=== PATIENT | female | born 1930 | race African-American/Black ===

== ENCOUNTER 2017-04-06 16:47 | Inpatient (IN) | payer MEDICARE, OTHER ==
[2017-04-03 09:14] LABS: BASOPHILS 0.1 %; BASOPHILS ABSOLUTE 0.01 10/3/uL (0.0-0.16); EOSINOPHILS 3.5 %; EOSINOPHILS ABSOLUTE 0.27 10/3/uL (0.0-0.53); HEMOGLOBIN 9.4 g/dL (12.0-16.0); IMMATURE GRANULOCYTES 0.4 %; IMMATURE GRANULOCYTES ABSOLUTE 0.03 10/3/uL (0.0-0.11); LYMPHOCYTES ABSOLUTE 2.72 10/3/uL (0.67-4.30); MEAN CORPUS HGB CONC 33.2 g/dL (32.0-36.0); MEAN CORPUSCULAR HEMOGLOB 30.1 pg (26.0-34.0); MEAN CORPUSCULAR VOLUME 90.7 fL (80-100); MEAN PLATELET VOLUME 9.8 fL (9.2-13.0); MONOCYTES 9.7 %; MONOCYTES ABSOLUTE 0.75 10/3/uL (0.21-1.20); NEUTROPHILS 51.3 %; NEUTROPHILS ABSOLUTE 3.99 10/3/uL (2.02-8.40); RBC DISTRIBUTION WIDTH 15.1 % (12.0-16.0); RED CELL COUNT 3.12 10/6/uL (4.0-5.6); WHITE BLOOD CELLS 7.8 10/3/uL (4.5-10.5)
[2017-04-03 09:23] LABS: HEMATOCRIT 28.3 % (36.0-48.0); MANUAL DIFF NO %; PLATELET COUNT 155 10/3/uL (150-400)
--- NOTE | ~2017-04-06 | HP ---
History And Physical [id number] [place]. [address] NAME: ARDEN SIDDIQI : 30 STATUS : ADM Maureen PAT#: [id number] AGE: 87 ADM/REG DATE : 04/06/17 MR#: [id number] REPORT SERV DATE: 04/06/17 DICTATED BY: KULWINDER THURMAN DATE: 04/06/17 REPORT STATUS : Draft TRANSCRIBED BY: MODL DATE: 04/06/17 DATE OF ADMISSION: 04/06/2017 CHIEF COMPLAINT: Fever and weakness. HISTORY OF PRESENT ILLNESS: This is an 87-year-old male who had a hip surgery done on 11/24/2016 and was then transferred to [facility] for rehabilitation. She has been there since the surgery and has done poorly with the rehab. However, since Saturday last, she has been feeling poorly, has had generalized weakness, and is unable to get up off the bed even. In the last 24 hours, she has had a fever of 103 degrees Fahrenheit, and finally, the family wanted the patient transferred here to be evaluated. In the emergency room, initial workup revealed a urinary tract infection with pyelonephritis and sepsis with a lactate of 3.4. She also complained of some chest pain 2 days ago and has not had any since then, but her troponin today was marginally elevated as well. Hospitalist Service is asked to admit her for further evaluation and treatment. At the time of my evaluation, she denied any chest pain or palpitations. She had no orthopnea. She did have a cough, productive of clear sputum. No history of hemoptysis, night sweats, or weight loss. She has not had any recent fevers or chills and has not complained of any dysuria. No history of recent falls or loss of consciousness. She did have some nausea, vomiting, but no diarrhea. No history of hematemesis, hematochezia, or hematuria. No other history of recent travel or exposures other than those mentioned above. PAST MEDICAL HISTORY: Significant for history of recent left hip fracture as described above, history of chronic kidney disease stage 3, history of DVT, essential hypertension, gastroesophageal reflux disease with GI bleed in the past, history of myelodysplasia, and cervical cancer. SOCIAL HISTORY: She does not smoke, drink, or use recreational drugs. FAMILY HISTORY: Noncontributory. MEDICATIONS: At home were reviewed by me in the chart today and reordered by me. REVIEW OF SYSTEMS: As in history of present illness. All other systems were reviewed in detail and are quite unremarkable. PHYSICAL EXAMINATION: GENERAL: This is a pleasant 87-year-old, not in any acute distress. HEENT: Head is atraumatic, normocephalic. She is alert, awake, oriented to time, place, and person. Her pupils are equal, reacting to light and accommodating. External ocular muscles are intact. Membranes are moist and pink. Sclerae are nonicteric. NECK: Supple with no jugular venous distention, lymphadenopathy, or thyromegaly. LUNGS: Clear to auscultation with no wheezes, rubs, or crackles. HEART: Heart sounds are regular with no murmurs, rubs, or gallops appreciated. History And Physical [address] [address] NAME: ARDEN SIDDIQI : 30 STATUS : ADM Maureen PAT#: [id number] AGE: 87 ADM/REG DATE : 04/06/17 MR#: [id number] REPORT SERV DATE: 04/06/17 DICTATED BY: KULWINDER THURMAN DATE: 04/06/17 REPORT STATUS : Draft TRANSCRIBED BY: EBONIE DATE: 04/06/17 ABDOMEN: Soft and nontender. Bowel sounds are present. EXTREMITIES: Do not show any edema cyanosis or clubbing. NEUROLOGIC: Grossly intact. No focal deficits. Higher functions appear intact. VITAL SIGNS: Her vital signs today show a temperature of 98.49, pulse 72, respirations 22 a minute, blood pressure 120/62, oxygen saturations 96%, breathing 2 L of oxygen via nasal cannula. LABORATORY DATA: Reviewed on the [employer] system showed a sodium of 140, potassium 3.8, chloride 107, CO2 of 24. BUN was 47 with a creatinine of 2.02 today, this is up from her baseline of 1 to 1.2. Her glucose was 180 today. GFR was down to 25. Her troponin was 0.11 today. [place] a [place] [address], hemoglobin was 9.8, hematocrit was 30.2 which has been her baseline. MCV was 92.4 and platelet was 115995. Her prothrombin times a day. Urinalysis showed moderate leukocyte esterase. Nitrite was negative. There were 16 wbc's and many bacteria. Films of the chest x-ray were reviewed by me on the PACS today and interpreted by me. Per my interpretation, there are no acute changes. No lobar consolidations or effusions seen. A 12-lead EKG done in the emergency room was reviewed and interpreted by me. There is a normal sinus rhythm with a rate of [address] elevations. IMPRESSION: 1. Febrile illness. 2. Urinary tract infection. 3. Pyelonephritis. 4. Sepsis. 5. Anemia. 6. Acute kidney injury. 7. Chest pain. 8. Elevated troponin. 9. History of deep venous thrombosis. 10.Essential hypertension. 11.Myelodysplasia. 12.Chronic kidney disease. 13.Cervical cancer. 14.Lastly, left hip fracture, status post open reduction and internal fixation done by Dr. Marquis on 11/24/2016. We will admit Ms. Siddiqi to the Hospitalist Service with telemetry for a 24-hour observation day. After cultures are drawn, we will start her on empiric IV antibiotics and cover for nosocomial infections as well. Her anemia is chronic but stable. We will continue to monitor. She does have myelodysplastic syndrome. For her chest pain and elevated troponin, we will follow the troponins, hold off on heparin at this time due to history of GI bleed in this 87-year-old lady. Meanwhile, we will resort to aspirin and noninvasive strategies for now. We will also place her on IV fluids for volume resuscitation. Check her chemistry and electrolytes in the morning along with a CBC and correct accordingly. We will continue all other home medications at this time, place her on unfractionated heparin in a low dose for DVT prophylaxis as well. Please see today's orders for all the details. I have discussed the above plans with the patient. Her questions were answered today. She and her family History And Physical [address] [address] NAME: ARDEN SIDDIQI : 30 STATUS : ADM Maureen PAT#: [id number] AGE: 87 ADM/REG DATE : 04/06/17 MR#: [id number] REPORT SERV DATE: 04/06/17 DICTATED BY: KULWINDER THURMAN DATE: 04/06/17 REPORT STATUS : Draft TRANSCRIBED BY: EBONIE DATE: 04/06/17 are agreeable to the above recommendations. Hospitalist Service will be following her during her stay here. /EBONIE Kulwinder Thurman M.D. / [id number] CC: MD Sandeep Viramontes M.D.
--- NOTE | ~2017-04-06 | PUL ---
[facility] [address] [place]. [address] NAME: ARDEN SIDDIQI : 30 STATUS : ADM IN PAT#: [id number] AGE: 87 ADM/REG DATE : 04/07/17 MR#: [id number] REPORT SERV DATE: 04/09/17 DICTATED BY: JOSE LUIS SAMUELS DATE: 04/09/17 REPORT STATUS : Draft TRANSCRIBED BY: MODL DATE: 04/09/17 PULMONARY FUNCTION TEST OVERNIGHT PULSE OXIMETRY TEST: Overnight pulse oximetry done on room air. TOTAL RECORDING TIME: 6 hours 3 minutes. Mean pulse 79. Mean oxygen saturation 95.5%. Oxygen saturation less than 88% is 10 minutes 14 seconds, 2.9% of the night. INTERPRETATION: This is an abnormal study with nocturnal hypoxia, however, upon reviewing the SpO2 graft, if there is clinical concern of obstructive sleep apnea, would recommend outpatient polysomnogram versus starting this patient on oxygen therapy for nocturnal hypoxia. HFQ/EBONIE Jose Luis Samuels MD / [id number] CC: MD Sandeep Brink M.D.
--- NOTE | ~2017-04-06 | DS ---
Discharge Summary [address] [place]. [address] NAME: ARDEN SIDDIQI : 30 STATUS : DIS IN PAT#: [id number] AGE: 87 ADM/REG DATE : 04/07/17 MR#: [id number] REPORT SERV DATE: 04/21/17 DICTATED BY: DEDE PÉREZ DATE: 04/20/17 REPORT STATUS : Draft TRANSCRIBED BY: MODL DATE: 04/20/17 ADMISSION DATE: 04/07/2017 DISCHARGE DATE: 04/20/2017 DISCHARGE DIAGNOSES: 1. Sepsis. 2. Septic shock. 3. Lactic acidosis. 4. Escherichia coli pyelonephritis. 5. Acute pulmonary emboli with acute cor pulmonale with pulmonary systolic pressure of 70. 6. Acute kidney injury. 7. Chronic kidney disease 3. 8. Positive troponin, thought to be demand ischemia. 9. Pulmonary infiltrates. 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 11.History of previous deep venous thrombosis and anticoagulation. 12.History of gastrointestinal bleeding in 08/2015 and 02/2016. Negative stool Hemoccult. On anticoagulation at end of current hospitalization. 13.Dementia. 14.Systemic hypertension. 15.Hyperlipidemia. 16.Myelodysplasia. 17.Osteoporosis with history of fall and hip fracture in November 2016 and L1 compression fracture. 18.History of chronic rectal mass. 19.History of cervical cancer, treated. 20.Glaucoma. 21.Diverticulosis. 22.History of renal stones. 23.Diarrhea, Clostridium difficile negative, resolved. PRESENT ILLNESS: This is an 87-year-old female who was triaged in the emergency room on 04/06/2017 at 1647 hours, referred from [facility]. Admission vital signs: Blood pressure 120/62, temperature 98.49, pulse 72, respirations 22, O2 saturation 96%. After evaluation in the emergency room, she was found to have leukocytosis, anemia, acute kidney injury, and an abnormal urinalysis. She was referred to the Hospitalist Service for admission. She was seen by Dr. Kulwinder Sood and admitted as described on admission history and physical examination. Of note was that she had been in this hospital 11/23/2016 to 11/27/2016 with a left hip fracture. She had been at [facility] since that time, but had not returned to her pre hip fracture status. Discharge Summary [address] [place]. [address] NAME: ARDEN SIDDIQI : 30 STATUS : DIS IN PAT#: [id number] AGE: 87 ADM/REG DATE : 04/07/17 MR#: [id number] REPORT SERV DATE: 04/21/17 DICTATED BY: DEDE PÉREZ DATE: 04/20/17 REPORT STATUS : Draft TRANSCRIBED BY: MODL DATE: 04/20/17 In the previous 24 hours prior to admission, she had a temperature documented to 103. She had also complained of some chest pain. ADDITIONAL HISTORY: Per Dr. Sood. PHYSICAL EXAMINATION: Per Dr. Sood. ADMISSION LABORATORY: Per Dr. Sood. HOSPITAL COURSE: She was admitted by Dr. Sood with: 1. Febrile illness. 2. Urinary tract infection. 3. Pyelonephritis. 4. Sepsis. 5. Anemia. 6. Acute kidney injury. 7. Chest pain. 8. Elevated troponin. 9. History of deep venous thrombosis. 10.Essential hypertension. 11.Myelodysplasia. 12.Chronic kidney disease. 13.Cervical cancer. 14.Left hip fracture, post ORIF 11/24/2016. She was admitted to the Hospitalist Service. Cultures were obtained and she was started on broad-spectrum antimicrobial therapy. Crystalloid volume resuscitation was initiated. Her hospitalist care was assumed by Dr. Cheema on 04/07/2017. At that time, she appeared to have severe sepsis with hypotension. Critical Care consultation was obtained in addition to Cardiology consultation. She was seen by Dr. Dede Shi in the Critical Care Team. Her hospital course from admission through 04/10/2017 is as outlined on interim summary dictated by Dr. Dede Dewey. Her hospitalist care was then assumed by Dr. Davila on 04/11/2017 and 04/12/2017, then Dr. Richardson on 04/13/2017, then Dr. Whitaker on 04/14/2017 and 04/15/2017. She was seen by Holli Steiner APN, on 04/16/2017, and then the undersigned on 04/17/2017, 04/18/2017, 04/19/2017, and 04/20/2017. During the course of her hospitalization, her sepsis with shock, lactic acidosis, and pyelonephritis resolved. By the time of discharge, her white count was 9.5, having been 29.1 on 04/06/2017. Discharge Summary [facility] [place]. [address] NAME: ARDEN SIDDIQI : 30 STATUS : DIS IN PAT#: [id number] AGE: 87 ADM/REG DATE : 04/07/17 MR#: [id number] REPORT SERV DATE: 04/21/17 DICTATED BY: DEDE PÉREZ DATE: 04/20/17 REPORT STATUS : Draft TRANSCRIBED BY: MODMarianne DATE: 04/20/17 Her acute kidney injury had resolved with creatinine 2.02 on 04/06/2017 and 1.27 on 04/20/2017. She was initially treated with heparin, then transitioned to Coumadin. Her Coumadin requirement was extraordinarily low with therapeutic INR of 2.3 on 04/14/2017 and 04/15/2017, 2.6 on 04/16/2017, 2.9 on 04/17/2017, 2.7 on 04/18/2017, 2.9 on 04/19/2017, and 2.7 on 04/20/2017 with Coumadin dosing of 1 mg on 04/15/2017, 1 mg on 04/16/2017, and then no subsequent Coumadin. Stools were checked for occult blood given her previous history of gastrointestinal bleeding and both stools from 04/18/2017 and 04/19/2017 were negative. She developed some transient diarrhea, probably related to treatment for constipation. Stool was negative for C. difficile. During her hospitalization, she developed some patchy infiltrates. During the time she was seen by the undersigned, she did not have a productive cough or dyspnea. She was seen by Physical Therapy. Return to [facility] was recommended. On 04/20/2017, she was having no diarrhea. She had no new symptoms. She had a dry cough. She reported variable dysuria. Her O2 saturation was in the mid to high 90s on room air. She was in sinus rhythm. Her sodium was 141, potassium 3.8, chloride 106, CO2 of 26, BUN 17, creatinine 1.27, glucose 92, calcium 7.5. White count 9.5, hemoglobin 9.4 (stable), platelets 268,000, and INR as noted 2.7. At this point in her hospitalization, it was felt she had achieved a level of improvement and stability where she could be safely transitioned back to [facility] for rehab. DISCHARGE MEDICATIONS: Voltaren gel to knees and left shoulder twice daily; Aricept 10 mg daily; Cymbalta 30 mg daily; Eldertonic 30 mL daily; multivitamin 1 daily; Namenda 10 mg daily; omeprazole 40 mg twice daily; MiraLAX and Senokot if needed for constipation; sodium bicarbonate 650 mg three times daily. Monitoring BMP and adjusting dose and possibly discontinuing Coumadin. No Coumadin prescribed 04/20/2017 or 04/21/2017, with PT/INR on 04/22/2017. Dosing will be low, probably 0.5 to 1 mg, but not daily, with an INR goal of 2 to 2.5. Levaquin 750 mg every other day for two further doses on 04/21/2017 and 04/23/2017 to complete 2 weeks of antimicrobial therapy; meclizine 12.5 mg every 6 hours as needed; carvedilol 3.125 mg twice daily, increasing to 6.25 mg twice daily over the next several days if blood pressure and pulse allow; Ultram 25 mg every 6 hours as needed for pain. She will continue her timolol 1 drop twice daily in each eye. Vitamin C and iron present on admission were discontinued with current ferritin of 826. Discharge Summary [address] [address] NAME: ARDEN SIDDIQI : 30 STATUS : DIS IN PAT#: [id number] AGE: 87 ADM/REG DATE : 04/07/17 MR#: [id number] REPORT SERV DATE: 04/21/17 DICTATED BY: DEDE PÉREZ DATE: 04/20/17 REPORT STATUS : Draft TRANSCRIBED BY: MODL DATE: 04/20/17 She will need PT/INR, BMP, and CBC on 04/22/2017 called to her provider at [facility]. Additional questions can be directed to me at [phone]. Discharge time greater than 30 minutes. DICTATED BY: Dede Pérez M.D. DD/EBONIE Dede Pérez M.D. / [id number] CC: Elian Khan M.D. [facility]
--- NOTE | ~2017-04-06 | CN ---
Consultation Report [facility] [address] [place]. [address] NAME: ARDEN SIDDIQI : 30 STATUS : ADM Maureen PAT#: [id number] AGE: 87 ADM/REG DATE : 04/06/17 MR#: [id number] REPORT SERV DATE: 04/07/17 DICTATED BY: DEDE SHI DATE: 04/07/17 REPORT STATUS : Draft TRANSCRIBED BY: MODMarianne DATE: 04/07/17 CARDIOLOGY CONSULTATION DATE OF CONSULTATION: INDICATION: Atypical chest pain and elevated troponin. HISTORY: The patient is an 87-year-old female, who was admitted from [facility], where she has been hospitalized since 11/24/2016, after undergoing surgery for a hip fracture. She has had progressive weakness and was noted to have a fever of 103 degrees in the past 24 hours. She was found to have urinary tract infection and sepsis with a lactate of 3.4 and a white count of greater than 29,000. When asked about chest discomfort, she states that she has had chronic discomfort in the left precordial region along with neck pain. There is no exertional component. There are no acute EKG changes. There is no family history of coronary disease. The patient has never been a smoker. CURRENT HOME MEDICATIONS: Acetaminophen 500 q.4 hours, ascorbic acid 500, carvedilol 6.25 b.i.d., cyclobenzaprine 5 per day, diclofenac gel b.i.d., benazepril 10 per day, Duloxetine 30 per day, ferrous sulfate 325 a day, Antivert 25 q.6h p.r.n., Namenda 10 per day, milk of magnesia 30 p.r.n., multivitamins daily, omeprazole 20 per day, timolol malleate ophthalmologic OU b.i.d., tramadol 50 p.r.n. ALLERGIES OR INTOLERANCES: Penicillin, lorazepam, hydrocodone, and clonazepam. SOCIAL HISTORY: As mentioned negative for alcohol or tobacco use. FAMILY HISTORY: Negative for coronary artery disease at a young age. PAST MEDICAL HISTORY/REVIEW OF SYSTEMS: Positive for the recent hip fracture, chronic kidney disease, stage III, previous history of DVT, systemic hypertension, history of GERD with previous GI bleed, and history of myelodysplasia. She has had a remote history of cervical cancer. PHYSICAL EXAMINATION: GENERAL: Pleasant 87-year-old, white female, alert, in no acute distress. VITAL SIGNS: Blood pressure 95/63, pulse 73 and regular, respirations 18. SKIN: No xanthelasmas. HEENT: She is normocephalic. There is no pallor. Sclerae white. JVD is not elevated. No carotid bruits. CHEST: No crackles. CARDIAC: There is a 2/6 holosystolic murmur heard at the apex. There is a soft S4. ABDOMEN: Without tenderness. EXTREMITIES: Without edema. No clubbing. NEUROLOGIC: No focal deficits. Consultation Report [id number] [facility] [place]. [address] NAME: ARDEN SIDDIQI : 30 STATUS : ADM Maureen PAT#: [id number] AGE: 87 ADM/REG DATE : 04/06/17 MR#: [id number] REPORT SERV DATE: 04/07/17 DICTATED BY: DEDE SHI DATE: 04/07/17 REPORT STATUS : Draft TRANSCRIBED BY: MODL DATE: 04/07/17 MUSCULOSKELETAL: No kyphosis. LABORATORY DATA: BUN 50, creatinine 2.14, troponin has been in the 0.2 range at the time of admission, on 04/07/2017 started out at 0.11 and has not increased further, white count initially greater than 29,000, today 24.8, hemoglobin 8.9, platelets 147,000. As mentioned the ECG earlier this morning showed sinus rhythm with PACs. There are some nonspecific ST-T wave changes with poor R-wave progression. There are no acute repolarization changes present. IMPRESSION: Atypical chest pain in an elderly white female, with multiple drivers for elevated troponin. No acute intervention is required, I would take a watchful waiting approach. I would not start heparin at this point in time. Further recommendations as her clinical course evolves. MAREK/EBONIE Dede Shi M.D. / [id number] CC: MD Sandeep Brink M.D. , [facility]
--- NOTE | ~2017-04-06 | IDS ---
Interim Discharge Summary [facility] [address] [place]. [address] NAME: ARDEN SIDDIQI : 30 STATUS : ADM IN [facility]#: [id number] AGE: 87 ADM/REG DATE : 04/07/17 MR#: [id number] REPORT SERV DATE: 04/10/17 DICTATED BY: DEDE DEWEY DATE: 04/10/17 REPORT STATUS : Draft TRANSCRIBED BY: MODL DATE: 04/10/17 ADMISSION DATE: 04/07/2017 DISCHARGE DATE: DATE OF ICU TRANSFER: 04/07/2017. DATE OF INTERIM SUMMARY: 04/10/2017. INTERIM DIAGNOSES: 1. Escherichia coli urinary tract infection. 2. Septic shock. 3. Lactic acidosis. 4. Pulmonary embolism. 5. Acute on chronic renal failure. 6. Demand ischemia. 7. Sinus arrhythmia. ICU COURSE: Please see the dictated H and P and consult notes for full patient presentation and history. BRIEF SUMMARY: The patient is an 87-year-old female who was initially admitted to the Hospitalist Service on 04/07/2017 with some hypotension and evidence of urinary tract infection. Her hypotension worsened over the next 24 hours, and she had to be transferred to the ICU on 04/07/2017 for administration of vasopressors. She remained on Levophed for approximately 24 to 48 hours and was weaned off Levophed on 04/08/2017. She has remained off pressors since that time with a stable blood pressure. Empirically, she has been on cefepime for a urinary tract infection, which has since speciated as Escherichia coli that is sensitive to the cefepime; she is currently on day four of that. Her lactic acid also resolved with her shock. Currently, she is not on IV fluids. She also had some acute on chronic renal failure. Her creatinine has plateaued and is slowly trending down. Her creatinine level today is still pending, but we will continue to monitor this. While here, the patient had some chest pain and evidence of demand ischemia as well as episodes of sinus arrhythmia. Cardiology has been following the patient. On her echocardiogram, she had evidence of cor pulmonale with decreased right ventricular function. This prompted us to get a V/Q scan yesterday, which showed high probability of pulmonary embolism. Therefore, she has been started on a heparin drip, and this will be continued when she goes out to the floor. The patient is stable from my standpoint and she will be able to transfer out to the floor today. She will be assumed care by the Hospitalist service. Cardiology will continue to follow along as well. Please call if you have any questions. ALE/EBONIE Dede Dewey MD Interim Discharge Summary [address] [address] NAME: ARDEN SIDDIQI : 30 STATUS : ADM IN [facility]#: [id number] AGE: 87 ADM/REG DATE : 04/07/17 MR#: [id number] REPORT SERV DATE: 04/10/17 DICTATED BY: DEDE DEWEY DATE: 04/10/17 REPORT STATUS : Draft TRANSCRIBED BY: EBONIE DATE: 04/10/17 / [id number] CC: MD Sandeep Brink M.D.
[~2017-04-06 16:47] MED LIST: *UNABLE3; ACET500CAP PO; ACULAR OPH; ARANESP IV; ARICEPT10 PO; ARICEPT5 PO; ASA5GR PO; ASAB PO; ASAEC PO; BENGAY TOP; BETIMOL0.5 % OP; BETIMOL0.5 % OPH; BLOOD PRESSURE TAB PO; BONIVA150 MG PO; CALTRA600D PO; CIP5 PO; COREG6 PO; CYMBALTA30 PO; DOES NOT KNOW MEDS; FLAG500TAB PO; FLAGIV500 IV; FLEXERIL5 MG PO; FOSAMAX70 MG PO; HALF81 PO; HYDROCHLOROT25 MG PO; IRON325 MG PO; L40 PO; LIPITOR10 PO; LORTAB 5 PO; LOTE20 PO; LOTE40 PO; MAX25 PO; MCZ125 PO; MCZ25 PO; MELATONIN5 M1 PO; MIRALAXPKT PO; MULTIVIT WITH IRON PO; MULTIVIT/MIN PO; NORCO1 TA1 PO; NORV5 PO; P5 PO; PREDNISONE2.5 MG PO; PRILO PO; PRILOSEC40 MG PO; REFRES1 OPH; RELA5 PO; SYSTANE ULTR OP; T PO; TIMOLOL MAL0.5 % OP; TIMOLOL MAL0.5 % OPH; TIMOPTIC0.5 % OPH; TOPXL25 PO; TYLENOL 500MG TAB PO; TYLENOL ARTH650 MG PO; ULTRAM50 PO; VITAMIN D PO; VITAMIN D31000 UNIT PO; VITAMIN D400 UNI1 PO; ZYRTEC ALLGY10 MG PO; [UNRECOGNIZED DRUG - REMARK] IV; [UNRECOGNIZED DRUG - REMARK] SC
[2017-04-06] MEDS ORDERED: FLEXERIL5 MG PO (17:44)
[2017-04-06] MEDS ORDERED: COREG3 PO (17:44)
[2017-04-06] MEDS ORDERED: CYMBALTA30 PO (17:45)
[2017-04-06] MEDS ORDERED: ELDERTONIC PO (17:45)
[2017-04-06] MEDS ORDERED: ARICEPT10 PO (17:45)
[2017-04-06] MEDS ORDERED: NAMENDA10 MG PO (17:46)
[2017-04-06] MEDS ORDERED: FERROUS SULF325 M1 PO (17:46)
[2017-04-06] MEDS ORDERED: THERGRANM PO (17:46)
[2017-04-06] MEDS ORDERED: PRILOSEC OTC20 MG PO (17:47)
[2017-04-06] MEDS ORDERED: TIMOLOL MAL0.5 % OPH (17:47)
[2017-04-06] MEDS ORDERED: VITC500 PO (17:48)
[2017-04-06] MEDS ORDERED: VOLTAREN1 % TOP (17:48)
[2017-04-06] MEDS ORDERED: ULTRAM50 PO ×2 (17:48→17:50)
[2017-04-06] MEDS ORDERED: ACET500CAP PO (17:49)
[2017-04-06] MEDS ORDERED: MCZ25 PO (17:49)
[2017-04-06] MEDS ORDERED: MOMUD PO (17:50)
[2017-04-06 18:45] LABS: BASOPHILS 0 %; BASOPHILS ABSOLUTE 0.01 10/3/uL (0.0-0.16); EOSINOPHILS 0 %; HEMATOCRIT 30.2 % (36.0-48.0); HEMOGLOBIN 9.8 g/dL (12.0-16.0); IMMATURE GRANULOCYTES 0.5 %; LYMPHOCYTES 4.7 %; LYMPHOCYTES ABSOLUTE 1.37 10/3/uL (0.67-4.30); MEAN CORPUS HGB CONC 32.5 g/dL (32.0-36.0); MEAN CORPUSCULAR VOLUME 92.4 fL (80-100); MEAN PLATELET VOLUME 10.2 fL (9.2-13.0); MONOCYTES 4.3 %; MONOCYTES ABSOLUTE 1.25 10/3/uL (0.21-1.20); NEUTROPHILS 90.5 %; NEUTROPHILS ABSOLUTE 26.33 10/3/uL (2.02-8.40); PLATELET COUNT 165 10/3/uL (150-400); RBC DISTRIBUTION WIDTH 15.3 % (12.0-16.0); RED CELL COUNT 3.27 10/6/uL (4.0-5.6)
[2017-04-06 18:49] LABS: ER CBC TAT 0 Hrs 12 Mins; IMMATURE GRANULOCYTES ABSOLUTE 0.16 10/3/uL (0.0-0.11); MANUAL DIFF NO %; WHITE BLOOD CELLS 29.1 10/3/uL (4.5-10.5)
[2017-04-06 19:03] LABS: A/G RATIO 0.6 (0.7-1.9); ALBUMIN 2.6 G/DL (3.5-5.0); ALKALINE PHOSPHATASE 84 U/L (45-117); BUN (BLOOD UREA NITROGEN) 47 MG/DL (6-23); CALCIUM, SERUM 8.9 MG/DL (8.5-10.4); CHLORIDE, SERUM 107 MMOL/L (96-112); CO2 (CARBON DIOXIDE) 24 MMOL/L (24-34); CREATININE 2.02 MG/DL (0.55-1.02); GFR AFRICAN AMERICAN 25 ML/MIN (>=60); GFR NON AFRICAN AMERICAN 22 ML/MIN (>=60); GLOBULIN 4.7 G/DL (2.5-4.1); GLUCOSE, SERUM 180 MG/DL (60-99); LACTATE 3.4 MMOL/L (0.3-2.4); POTASSIUM, SERUM 3.8 MMOL/L (3.5-5.3); SGOT(AST) 13 U/L (5-40); SGPT(ALT) 11 U/L (5-65); SODIUM, SERUM 140 MMOL/L (135-148); TOTAL BILIRUBIN 0.8 MG/DL (0-1.2); TOTAL PROTEIN 7.3 G/DL (6.0-8.5)
[2017-04-06 19:04] LABS: TROPONIN I 0.11 NG/ML (<0.05)
[2017-04-06 19:05] LABS: ASCORBIC ACID (UR NOT ORDER) 40 (NEG); BILIRUBIN, URINE NEGATIVE (NEG); ER URINALYSIS TAT 0 Hrs 16 Mins; KETONE, URINE NEGATIVE (NEG); LEUKOCYTE ESTERASE(NOT OR MOD (NEG); NITRITE (URINE) NEG (NEG); WBC (NOT ORDERED) (RFLEX) 16 (0-5)
[2017-04-06 19:11] LABS: BAND NEUTROPHILS 1 %; ER DIFF TAT 0 Hrs 34 Mins; LYMPHOCYTES 6 %; LYMPHOCYTES ABSOLUTE (CALC) 1.75 10/3/uL (0.67-4.30); MONOCYTES 1 %; MONOCYTES ABSOLUTE (CALC) 0.29 10/3/uL (0.21-1.20); NEUTROPHILS ABSOLUTE (CALC) 27.06 10/3/uL (2.02-8.40); SEGMENTED NEUTROPHIL (0) 92 %; TOTAL NUCLEATED CELLS 100
[2017-04-06 19:12] LABS: GIANT PLATELET RARE
[2017-04-06 19:13] LABS: PLATELET ESTIMATE ADQ (ADEQUATE)
[2017-04-07 07:09] LABS: HEMATOCRIT 27.4 % (36.0-48.0); HEMOGLOBIN 8.9 g/dL (12.0-16.0); MEAN CORPUS HGB CONC 32.5 g/dL (32.0-36.0); MEAN CORPUSCULAR HEMOGLOB 29.8 pg (26.0-34.0); MEAN CORPUSCULAR VOLUME 91.6 fL (80-100); MEAN PLATELET VOLUME 9.9 fL (9.2-13.0); PLATELET COUNT 147 10/3/uL (150-400); RBC DISTRIBUTION WIDTH 15.1 % (12.0-16.0); RED CELL COUNT 2.99 10/6/uL (4.0-5.6); WHITE BLOOD CELLS 24.8 10/3/uL (4.5-10.5)
[2017-04-07 07:12] LABS: MANUAL DIFF YES %
[2017-04-07 07:27] LABS: BUN (BLOOD UREA NITROGEN) 50 MG/DL (6-23); CALCIUM, SERUM 8.1 MG/DL (8.5-10.4); CHLORIDE, SERUM 111 MMOL/L (96-112); CREATININE 2.14 MG/DL (0.55-1.02); GFR AFRICAN AMERICAN 23 ML/MIN (>=60); GFR NON AFRICAN AMERICAN 20 ML/MIN (>=60); PHOSPHORUS, SERUM 3.4 MG/DL (2.5-4.5); POTASSIUM, SERUM 3.7 MMOL/L (3.5-5.3); SODIUM, SERUM 143 MMOL/L (135-148)
[2017-04-07 07:28] LABS: CO2 (CARBON DIOXIDE) 19 MMOL/L (24-34); GLUCOSE, SERUM 127 MG/DL (60-99)
[2017-04-07 07:40] LABS: BAND NEUTROPHILS 2 %; LYMPHOCYTES 6 %; LYMPHOCYTES ABSOLUTE (CALC) 1.49 10/3/uL (0.67-4.30); MONOCYTES 6 %; MONOCYTES ABSOLUTE (CALC) 1.49 10/3/uL (0.21-1.20); NEUTROPHILS ABSOLUTE (CALC) 21.82 10/3/uL (2.02-8.40); SEGMENTED NEUTROPHIL (0) 86 %; TOTAL NUCLEATED CELLS 100
[2017-04-07 07:41] LABS: PLATELET ESTIMATE SLT DEC (ADEQUATE); RBC MORPHOLOGY NORM (NORMAL)
[2017-04-07 19:39] LABS: HEMOGLOBIN 9.6 g/dL (12.0-16.0); MEAN CORPUSCULAR HEMOGLOB 29.8 pg (26.0-34.0); MEAN CORPUSCULAR VOLUME 93.2 fL (80-100); MEAN PLATELET VOLUME 9.8 fL (9.2-13.0); PLATELET COUNT 156 10/3/uL (150-400); RBC DISTRIBUTION WIDTH 15.4 % (12.0-16.0); RED CELL COUNT 3.22 10/6/uL (4.0-5.6); WHITE BLOOD CELLS 24.5 10/3/uL (4.5-10.5)
[2017-04-07 19:41] LABS: MANUAL DIFF YES %
[2017-04-07 19:52] LABS: A/G RATIO 0.5 (0.7-1.9); ALBUMIN 2.3 G/DL (3.5-5.0); ALKALINE PHOSPHATASE 90 U/L (45-117); CALCIUM, SERUM 8.1 MG/DL (8.5-10.4); CHLORIDE, SERUM 111 MMOL/L (96-112); CREATININE 2.51 MG/DL (0.55-1.02); GFR AFRICAN AMERICAN 19 ML/MIN (>=60); GFR NON AFRICAN AMERICAN 17 ML/MIN (>=60); GLOBULIN 4.5 G/DL (2.5-4.1); GLUCOSE, SERUM 113 MG/DL (60-99); POTASSIUM, SERUM 4.4 MMOL/L (3.5-5.3); SGOT(AST) 19 U/L (5-40); SGPT(ALT) 13 U/L (5-65); SODIUM, SERUM 143 MMOL/L (135-148); TOTAL BILIRUBIN 0.5 MG/DL (0-1.2); TOTAL PROTEIN 6.8 G/DL (6.0-8.5)
[2017-04-07 19:53] LABS: BUN (BLOOD UREA NITROGEN) 56 MG/DL (6-23); CO2 (CARBON DIOXIDE) 25 MMOL/L (24-34)
[2017-04-07 19:56] LABS: BE (BASE EXCESS) -4.5 MEQ/L (0 +/- 2.5); CARBOXYHEMOGLOBIN 0.3 % (0-3); HCO3 (ACTUAL BICARBONATE) 19.2 MEQ/L (23-27); HEMOBLOGIN CONTENT 9.9 G/DL (12-16); INSTRUMENT SERIAL # 35151; METHEMOGLOBIN 0.4 % (0-3); O2 CONTENT 12.9 VOL% (18-24); OPERATOR ID 31061; PCO2 (CO2 TENSION) 31 MMHG (35-45); PO2 (O2 TENSION) 71 MMHG (79-93); SAMPLE Arterial; pH 7.42 (7.37-7.43)
[2017-04-07 19:56] LABS: BAND NEUTROPHILS 2 %; LYMPHOCYTES 3 %; LYMPHOCYTES ABSOLUTE (CALC) 0.74 10/3/uL (0.67-4.30); MONOCYTES 1 %; MONOCYTES ABSOLUTE (CALC) 0.25 10/3/uL (0.21-1.20); NEUTROPHILS ABSOLUTE (CALC) 23.52 10/3/uL (2.02-8.40); SEGMENTED NEUTROPHIL (0) 94 %; TOTAL NUCLEATED CELLS 100
[2017-04-07 19:57] LABS: ALLENS TEST Pos
[2017-04-07 19:57] LABS: BURR CELLS 1+ (3-10/OIF) (0-2/OIF)
[2017-04-07 20:00] LABS: PLATELET ESTIMATE ADQ (ADEQUATE)
[2017-04-08 04:53] LABS: BASOPHILS 0.1 %; BASOPHILS ABSOLUTE 0.01 10/3/uL (0.0-0.16); EOSINOPHILS 0.1 %; EOSINOPHILS ABSOLUTE 0.01 10/3/uL (0.0-0.53); HEMATOCRIT 26.2 % (36.0-48.0); HEMOGLOBIN 8.5 g/dL (12.0-16.0); IMMATURE GRANULOCYTES 0.6 %; LYMPHOCYTES 8.2 %; LYMPHOCYTES ABSOLUTE 1.44 10/3/uL (0.67-4.30); MANUAL DIFF NO %; MEAN CORPUS HGB CONC 32.4 g/dL (32.0-36.0); MEAN CORPUSCULAR HEMOGLOB 29.9 pg (26.0-34.0); MEAN CORPUSCULAR VOLUME 92.3 fL (80-100); MONOCYTES 4.4 %; MONOCYTES ABSOLUTE 0.77 10/3/uL (0.21-1.20); NEUTROPHILS 86.6 %; NEUTROPHILS ABSOLUTE 15.13 10/3/uL (2.02-8.40); NUCLEATED RED BLOOD CELLS 0.3 /100WBC (0-0); PLATELET COUNT 161 10/3/uL (150-400); RBC DISTRIBUTION WIDTH 15.4 % (12.0-16.0); RED CELL COUNT 2.84 10/6/uL (4.0-5.6); WHITE BLOOD CELLS 17.5 10/3/uL (4.5-10.5)
[2017-04-08 05:06] LABS: CALCIUM, SERUM 8.2 MG/DL (8.5-10.4); CHLORIDE, SERUM 116 MMOL/L (96-112); CREATININE 2.51 MG/DL (0.55-1.02); GFR AFRICAN AMERICAN 19 ML/MIN (>=60); GFR NON AFRICAN AMERICAN 17 ML/MIN (>=60); GLUCOSE, SERUM 101 MG/DL (60-99); POTASSIUM, SERUM 3.9 MMOL/L (3.5-5.3); SODIUM, SERUM 141 MMOL/L (135-148)
[2017-04-08 05:09] LABS: BUN (BLOOD UREA NITROGEN) 61 MG/DL (6-23); CO2 (CARBON DIOXIDE) 20 MMOL/L (24-34); TROPONIN I 0.39 NG/ML (<0.05)
[2017-04-09 05:07] LABS: HEMATOCRIT 26.7 % (36.0-48.0); HEMOGLOBIN 8.7 g/dL (12.0-16.0); MEAN CORPUS HGB CONC 32.6 g/dL (32.0-36.0); MEAN CORPUSCULAR VOLUME 92.1 fL (80-100); MEAN PLATELET VOLUME 9.7 fL (9.2-13.0); NUCLEATED RED BLOOD CELLS 0.7 /100WBC (0-0); PLATELET COUNT 172 10/3/uL (150-400); RBC DISTRIBUTION WIDTH 15.6 % (12.0-16.0); WHITE BLOOD CELLS 13.3 10/3/uL (4.5-10.5)
[2017-04-09 05:08] LABS: A/G RATIO 0.6 (0.7-1.9); ALBUMIN 2.3 G/DL (3.5-5.0); ALKALINE PHOSPHATASE 87 U/L (45-117); BUN (BLOOD UREA NITROGEN) 59 MG/DL (6-23); CALCIUM, SERUM 7.8 MG/DL (8.5-10.4); CHLORIDE, SERUM 114 MMOL/L (96-112); CO2 (CARBON DIOXIDE) 17 MMOL/L (24-34); CREATININE 2.39 MG/DL (0.55-1.02); GFR AFRICAN AMERICAN 20 ML/MIN (>=60); GFR NON AFRICAN AMERICAN 18 ML/MIN (>=60); GLOBULIN 3.6 G/DL (2.5-4.1); PHOSPHORUS, SERUM 3.4 MG/DL (2.5-4.5); POTASSIUM, SERUM 3.9 MMOL/L (3.5-5.3); SGOT(AST) 28 U/L (5-40); SGPT(ALT) 16 U/L (5-65); SODIUM, SERUM 144 MMOL/L (135-148); TOTAL BILIRUBIN 0.4 MG/DL (0-1.2); TOTAL PROTEIN 5.9 G/DL (6.0-8.5)
[2017-04-09 05:09] LABS: GLUCOSE, SERUM 74 MG/DL (60-99)
[2017-04-09 05:10] LABS: LACTATE 1.1 MMOL/L (0.3-2.4)
[2017-04-09 05:13] LABS: MANUAL DIFF YES %
[2017-04-09 05:40] LABS: LYMPHOCYTES 7 %; LYMPHOCYTES ABSOLUTE (CALC) 0.93 10/3/uL (0.67-4.30); MONOCYTES 4 %; MONOCYTES ABSOLUTE (CALC) 0.53 10/3/uL (0.21-1.20); NEUTROPHILS ABSOLUTE (CALC) 11.84 10/3/uL (2.02-8.40); SEGMENTED NEUTROPHIL (0) 89 %; TOTAL NUCLEATED CELLS 100
[2017-04-09 05:42] LABS: PLATELET ESTIMATE ADQ (ADEQUATE); RBC MORPHOLOGY NORM (NORMAL)
[2017-04-09 18:44] LABS: INTERNATIONAL NORMAL RATI 1.5 UNITS (-); PARTIAL THROMBO TIME 32.6 SEC (22.5-37.2); PROTIME (NOT ORD) 18.3 SEC (12.0-14.5)
[2017-04-10 10:10] LABS: BASOPHILS 0.1 %; BASOPHILS ABSOLUTE 0.01 10/3/uL (0.0-0.16); EOSINOPHILS 1.3 %; EOSINOPHILS ABSOLUTE 0.15 10/3/uL (0.0-0.53); HEMATOCRIT 27.2 % (36.0-48.0); HEMOGLOBIN 8.9 g/dL (12.0-16.0); IMMATURE GRANULOCYTES 1.3 %; IMMATURE GRANULOCYTES ABSOLUTE 0.16 10/3/uL (0.0-0.11); LYMPHOCYTES ABSOLUTE 1.91 10/3/uL (0.67-4.30); MEAN CORPUS HGB CONC 32.7 g/dL (32.0-36.0); MEAN CORPUSCULAR VOLUME 91.6 fL (80-100); MEAN PLATELET VOLUME 9.5 fL (9.2-13.0); MONOCYTES ABSOLUTE 0.84 10/3/uL (0.21-1.20); NEUTROPHILS 74.3 %; NEUTROPHILS ABSOLUTE 8.85 10/3/uL (2.02-8.40); PLATELET COUNT 204 10/3/uL (150-400); RBC DISTRIBUTION WIDTH 15.5 % (12.0-16.0); RED CELL COUNT 2.97 10/6/uL (4.0-5.6); WHITE BLOOD CELLS 11.9 10/3/uL (4.5-10.5)
[2017-04-10 10:11] LABS: MANUAL DIFF NO %
[2017-04-10 10:37] LABS: BUN (BLOOD UREA NITROGEN) 61 MG/DL (6-23); CALCIUM, SERUM 8.1 MG/DL (8.5-10.4); CHLORIDE, SERUM 112 MMOL/L (96-112); CO2 (CARBON DIOXIDE) 18 MMOL/L (24-34); CREATININE 2.21 MG/DL (0.55-1.02); GFR AFRICAN AMERICAN 22 ML/MIN (>=60); GFR NON AFRICAN AMERICAN 19 ML/MIN (>=60); GLUCOSE, SERUM 84 MG/DL (60-99); PHOSPHORUS, SERUM 2.9 MG/DL (2.5-4.5); POTASSIUM, SERUM 3.9 MMOL/L (3.5-5.3); SODIUM, SERUM 141 MMOL/L (135-148)
[2017-04-10 15:49] LABS: HEMATOCRIT 28.1 % (36.0-48.0); HEMOGLOBIN 9.1 g/dL (12.0-16.0)
[2017-04-10 23:14] LABS: HEMATOCRIT 28.7 % (36.0-48.0); HEMOGLOBIN 9.4 g/dL (12.0-16.0)
[2017-04-11 06:09] LABS: BASOPHILS 0.2 %; BASOPHILS ABSOLUTE 0.02 10/3/uL (0.0-0.16); EOSINOPHILS ABSOLUTE 0.26 10/3/uL (0.0-0.53); HEMATOCRIT 29.8 % (36.0-48.0); HEMOGLOBIN 9.3 g/dL (12.0-16.0); IMMATURE GRANULOCYTES 1.9 %; IMMATURE GRANULOCYTES ABSOLUTE 0.24 10/3/uL (0.0-0.11); LYMPHOCYTES 13.9 %; LYMPHOCYTES ABSOLUTE 1.76 10/3/uL (0.67-4.30); MANUAL DIFF NO %; MEAN CORPUS HGB CONC 31.2 g/dL (32.0-36.0); MEAN CORPUSCULAR HEMOGLOB 29.2 pg (26.0-34.0); MEAN CORPUSCULAR VOLUME 93.7 fL (80-100); MEAN PLATELET VOLUME 9.4 fL (9.2-13.0); MONOCYTES 9.3 %; MONOCYTES ABSOLUTE 1.18 10/3/uL (0.21-1.20); NEUTROPHILS 72.7 %; NEUTROPHILS ABSOLUTE 9.24 10/3/uL (2.02-8.40); NUCLEATED RED BLOOD CELLS 0.6 /100WBC (0-0); PLATELET COUNT 221 10/3/uL (150-400); RBC DISTRIBUTION WIDTH 15.9 % (12.0-16.0); RED CELL COUNT 3.18 10/6/uL (4.0-5.6); WHITE BLOOD CELLS 12.7 10/3/uL (4.5-10.5)
[2017-04-11 06:11] LABS: BUN (BLOOD UREA NITROGEN) 51 MG/DL (6-23); CALCIUM, SERUM 8.1 MG/DL (8.5-10.4); CHLORIDE, SERUM 110 MMOL/L (96-112); CO2 (CARBON DIOXIDE) 17 MMOL/L (24-34); CREATININE 2.07 MG/DL (0.55-1.02); GFR AFRICAN AMERICAN 24 ML/MIN (>=60); GFR NON AFRICAN AMERICAN 21 ML/MIN (>=60); GLUCOSE, SERUM 79 MG/DL (60-99); PHOSPHORUS, SERUM 2.9 MG/DL (2.5-4.5); POTASSIUM, SERUM 3.7 MMOL/L (3.5-5.3); SODIUM, SERUM 139 MMOL/L (135-148)
[2017-04-12 06:17] LABS: INTERNATIONAL NORMAL RATI 1.5 UNITS (-); PARTIAL THROMBO TIME 71.1 SEC (22.5-37.2); PROTIME (NOT ORD) 18.2 SEC (12.0-14.5)
[2017-04-12 06:20] LABS: CALCIUM, SERUM 8.1 MG/DL (8.5-10.4); CHLORIDE, SERUM 107 MMOL/L (96-112); CREATININE 1.94 MG/DL (0.55-1.02); GFR AFRICAN AMERICAN 26 ML/MIN (>=60); GFR NON AFRICAN AMERICAN 23 ML/MIN (>=60); GLUCOSE, SERUM 87 MG/DL (60-99); POTASSIUM, SERUM 3.5 MMOL/L (3.5-5.3); SODIUM, SERUM 137 MMOL/L (135-148)
[2017-04-12 06:21] LABS: BUN (BLOOD UREA NITROGEN) 42 MG/DL (6-23); CO2 (CARBON DIOXIDE) 21 MMOL/L (24-34); HEMATOCRIT 27.1 % (36.0-48.0); HEMOGLOBIN 8.8 g/dL (12.0-16.0); MEAN CORPUS HGB CONC 32.5 g/dL (32.0-36.0); MEAN CORPUSCULAR HEMOGLOB 29.9 pg (26.0-34.0); MEAN CORPUSCULAR VOLUME 92.2 fL (80-100); PLATELET COUNT 267 10/3/uL (150-400); RBC DISTRIBUTION WIDTH 16.1 % (12.0-16.0); RED CELL COUNT 2.94 10/6/uL (4.0-5.6); WHITE BLOOD CELLS 11.6 10/3/uL (4.5-10.5)
[2017-04-12 06:23] LABS: MANUAL DIFF YES %
[2017-04-12 06:39] LABS: BAND NEUTROPHILS 3 %; EOSINOPHILS 1 %; EOSINOPHILS ABSOLUTE (CALC) 0.12 10/3/uL (0.0-0.53); IMMATURE GRANS ABSOLUTE (CALC) 0.12 10/3/uL (0.0-0.11); LYMPHOCYTES 6 %; METAMYELOCYTES 1 %; MONOCYTES 1 %; MONOCYTES ABSOLUTE (CALC) 0.12 10/3/uL (0.21-1.20); NEUTROPHILS ABSOLUTE (CALC) 10.56 10/3/uL (2.02-8.40); SEGMENTED NEUTROPHIL (0) 88 %; TOTAL NUCLEATED CELLS 100
[2017-04-12 06:40] LABS: ANISOCYTOSIS 1+ (5-10/OIF) (0-5/OIF); PLATELET ESTIMATE ADQ (ADEQUATE); POLYCHROMASIA 1+ (2-5/OIF) (0-1/OIF)
[2017-04-12 06:41] LABS: ELLIPTOCYTES 1+ (3-10/OIF) (0-2/OIF)
[2017-04-13 01:31] LABS: BASOPHILS 0.2 %; BASOPHILS ABSOLUTE 0.03 10/3/uL (0.0-0.16); EOSINOPHILS 2.6 %; EOSINOPHILS ABSOLUTE 0.34 10/3/uL (0.0-0.53); HEMATOCRIT 27.5 % (36.0-48.0); IMMATURE GRANULOCYTES 1.8 %; IMMATURE GRANULOCYTES ABSOLUTE 0.24 10/3/uL (0.0-0.11); LYMPHOCYTES 12.7 %; LYMPHOCYTES ABSOLUTE 1.67 10/3/uL (0.67-4.30); MEAN CORPUS HGB CONC 32.7 g/dL (32.0-36.0); MEAN CORPUSCULAR HEMOGLOB 30.1 pg (26.0-34.0); MONOCYTES ABSOLUTE 1.18 10/3/uL (0.21-1.20); NEUTROPHILS 73.7 %; NEUTROPHILS ABSOLUTE 9.71 10/3/uL (2.02-8.40); PLATELET COUNT 281 10/3/uL (150-400); RED CELL COUNT 2.99 10/6/uL (4.0-5.6); WHITE BLOOD CELLS 13.2 10/3/uL (4.5-10.5)
[2017-04-13 01:35] LABS: MANUAL DIFF NO %
[2017-04-13 01:40] LABS: INTERNATIONAL NORMAL RATI 1.7 UNITS (-); PROTIME (NOT ORD) 19.9 SEC (12.0-14.5)
[2017-04-13 01:44] LABS: BUN (BLOOD UREA NITROGEN) 36 MG/DL (6-23); CALCIUM, SERUM 7.9 MG/DL (8.5-10.4); CHLORIDE, SERUM 108 MMOL/L (96-112); CO2 (CARBON DIOXIDE) 22 MMOL/L (24-34); CREATININE 1.67 MG/DL (0.55-1.02); GFR AFRICAN AMERICAN 32 ML/MIN (>=60); GFR NON AFRICAN AMERICAN 27 ML/MIN (>=60); GLUCOSE, SERUM 90 MG/DL (60-99); SODIUM, SERUM 139 MMOL/L (135-148)
[2017-04-14 06:32] LABS: BASOPHILS 0.1 %; BASOPHILS ABSOLUTE 0.02 10/3/uL (0.0-0.16); EOSINOPHILS 2.6 %; EOSINOPHILS ABSOLUTE 0.37 10/3/uL (0.0-0.53); HEMATOCRIT 27.8 % (36.0-48.0); HEMOGLOBIN 9.1 g/dL (12.0-16.0); IMMATURE GRANULOCYTES 0.8 %; IMMATURE GRANULOCYTES ABSOLUTE 0.11 10/3/uL (0.0-0.11); LYMPHOCYTES ABSOLUTE 1.71 10/3/uL (0.67-4.30); MEAN CORPUS HGB CONC 32.7 g/dL (32.0-36.0); MEAN CORPUSCULAR VOLUME 91.7 fL (80-100); MEAN PLATELET VOLUME 8.9 fL (9.2-13.0); MONOCYTES 8.2 %; MONOCYTES ABSOLUTE 1.17 10/3/uL (0.21-1.20); NEUTROPHILS 76.3 %; NEUTROPHILS ABSOLUTE 10.89 10/3/uL (2.02-8.40); PLATELET COUNT 321 10/3/uL (150-400); RBC DISTRIBUTION WIDTH 16.3 % (12.0-16.0); RED CELL COUNT 3.03 10/6/uL (4.0-5.6); WHITE BLOOD CELLS 14.3 10/3/uL (4.5-10.5)
[2017-04-14 06:34] LABS: MANUAL DIFF NO %
[2017-04-14 06:38] LABS: INTERNATIONAL NORMAL RATI 2.3 UNITS (-)
[2017-04-14 06:45] LABS: A/G RATIO 0.5 (0.7-1.9); ALBUMIN 1.9 G/DL (3.5-5.0); ALKALINE PHOSPHATASE 90 U/L (45-117); BUN (BLOOD UREA NITROGEN) 26 MG/DL (6-23); CALCIUM, SERUM 8.2 MG/DL (8.5-10.4); CHLORIDE, SERUM 107 MMOL/L (96-112); CO2 (CARBON DIOXIDE) 22 MMOL/L (24-34); CREATININE 1.65 MG/DL (0.55-1.02); GFR AFRICAN AMERICAN 32 ML/MIN (>=60); GFR NON AFRICAN AMERICAN 28 ML/MIN (>=60); GLOBULIN 4.1 G/DL (2.5-4.1); GLUCOSE, SERUM 97 MG/DL (60-99); PHOSPHORUS, SERUM 2.6 MG/DL (2.5-4.5); POTASSIUM, SERUM 4.1 MMOL/L (3.5-5.3); SGOT(AST) 20 U/L (5-40); SGPT(ALT) < 6 U/L (5-65); SODIUM, SERUM 138 MMOL/L (135-148); TOTAL BILIRUBIN 0.5 MG/DL (0-1.2)
[2017-04-14 07:12] LABS: PARTIAL THROMBO TIME 145.1 SEC (22.5-37.2); PROTIME (NOT ORD) 24.9 SEC (12.0-14.5)
[2017-04-15 02:45] LABS: BASOPHILS 0.1 %; BASOPHILS ABSOLUTE 0.01 10/3/uL (0.0-0.16); EOSINOPHILS 2.3 %; EOSINOPHILS ABSOLUTE 0.32 10/3/uL (0.0-0.53); HEMATOCRIT 27.2 % (36.0-48.0); HEMOGLOBIN 8.7 g/dL (12.0-16.0); IMMATURE GRANULOCYTES 0.8 %; IMMATURE GRANULOCYTES ABSOLUTE 0.11 10/3/uL (0.0-0.11); LYMPHOCYTES 14.2 %; LYMPHOCYTES ABSOLUTE 1.99 10/3/uL (0.67-4.30); MEAN CORPUSCULAR HEMOGLOB 29.4 pg (26.0-34.0); MEAN CORPUSCULAR VOLUME 91.9 fL (80-100); MEAN PLATELET VOLUME 8.7 fL (9.2-13.0); MONOCYTES 8.3 %; MONOCYTES ABSOLUTE 1.16 10/3/uL (0.21-1.20); NEUTROPHILS 74.3 %; NEUTROPHILS ABSOLUTE 10.42 10/3/uL (2.02-8.40); PLATELET COUNT 336 10/3/uL (150-400); RBC DISTRIBUTION WIDTH 16.3 % (12.0-16.0); RED CELL COUNT 2.96 10/6/uL (4.0-5.6)
[2017-04-15 02:46] LABS: MANUAL DIFF NO %
[2017-04-15 02:54] LABS: INTERNATIONAL NORMAL RATI 2.3 UNITS (-); PROTIME (NOT ORD) 25.4 SEC (12.0-14.5)
[2017-04-15 02:55] LABS: PARTIAL THROMBO TIME 102.1 SEC (22.5-37.2)
[2017-04-15 02:59] LABS: BUN (BLOOD UREA NITROGEN) 25 MG/DL (6-23); CALCIUM, SERUM 7.6 MG/DL (8.5-10.4); CHLORIDE, SERUM 107 MMOL/L (96-112); CO2 (CARBON DIOXIDE) 22 MMOL/L (24-34); GFR AFRICAN AMERICAN 33 ML/MIN (>=60); GFR NON AFRICAN AMERICAN 29 ML/MIN (>=60); GLUCOSE, SERUM 83 MG/DL (60-99); POTASSIUM, SERUM 4.1 MMOL/L (3.5-5.3); SODIUM, SERUM 140 MMOL/L (135-148)
[2017-04-15 05:39] LABS: ALLENS TEST Pos; BE (BASE EXCESS) -5.7 MEQ/L (0 +/- 2.5); CARBOXYHEMOGLOBIN 0.3 % (0-3); DEVICE NRB; HCO3 (ACTUAL BICARBONATE) 16.9 MEQ/L (23-27); HEMOBLOGIN CONTENT 9.1 G/DL (12-16); INSTRUMENT SERIAL # 8083; METHEMOGLOBIN 0.3 % (0-3); PCO2 (CO2 TENSION) 24 MMHG (35-45); PO2 (O2 TENSION) 462 MMHG (79-93); SAMPLE Arterial; pH 7.47 (7.37-7.43)
[2017-04-16 04:49] LABS: BASOPHILS 0.2 %; BASOPHILS ABSOLUTE 0.03 10/3/uL (0.0-0.16); EOSINOPHILS 2.1 %; EOSINOPHILS ABSOLUTE 0.27 10/3/uL (0.0-0.53); HEMATOCRIT 26.6 % (36.0-48.0); HEMOGLOBIN 8.5 g/dL (12.0-16.0); IMMATURE GRANULOCYTES 0.5 %; IMMATURE GRANULOCYTES ABSOLUTE 0.07 10/3/uL (0.0-0.11); LYMPHOCYTES 9.7 %; LYMPHOCYTES ABSOLUTE 1.25 10/3/uL (0.67-4.30); MEAN CORPUSCULAR HEMOGLOB 29.6 pg (26.0-34.0); MEAN CORPUSCULAR VOLUME 92.7 fL (80-100); MEAN PLATELET VOLUME 8.5 fL (9.2-13.0); MONOCYTES 10.9 %; NEUTROPHILS 76.6 %; NEUTROPHILS ABSOLUTE 9.85 10/3/uL (2.02-8.40); PLATELET COUNT 346 10/3/uL (150-400); RBC DISTRIBUTION WIDTH 16.1 % (12.0-16.0); RED CELL COUNT 2.87 10/6/uL (4.0-5.6); WHITE BLOOD CELLS 12.9 10/3/uL (4.5-10.5)
[2017-04-16 04:52] LABS: MANUAL DIFF NO %
[2017-04-16 04:54] LABS: INTERNATIONAL NORMAL RATI 2.6 UNITS (-); PROTIME (NOT ORD) 27.8 SEC (12.0-14.5)
[2017-04-16 05:00] LABS: BUN (BLOOD UREA NITROGEN) 22 MG/DL (6-23); CALCIUM, SERUM 8.1 MG/DL (8.5-10.4); CHLORIDE, SERUM 107 MMOL/L (96-112); CO2 (CARBON DIOXIDE) 23 MMOL/L (24-34); CREATININE 1.54 MG/DL (0.55-1.02); GFR AFRICAN AMERICAN 35 ML/MIN (>=60); GFR NON AFRICAN AMERICAN 30 ML/MIN (>=60); GLUCOSE, SERUM 76 MG/DL (60-99); POTASSIUM, SERUM 3.8 MMOL/L (3.5-5.3); SODIUM, SERUM 140 MMOL/L (135-148)
[2017-04-17 04:05] LABS: BASOPHILS 0.2 %; BASOPHILS ABSOLUTE 0.02 10/3/uL (0.0-0.16); EOSINOPHILS 1.7 %; EOSINOPHILS ABSOLUTE 0.21 10/3/uL (0.0-0.53); HEMATOCRIT 25.9 % (36.0-48.0); HEMOGLOBIN 8.3 g/dL (12.0-16.0); IMMATURE GRANULOCYTES 0.7 %; IMMATURE GRANULOCYTES ABSOLUTE 0.08 10/3/uL (0.0-0.11); LYMPHOCYTES 14.6 %; LYMPHOCYTES ABSOLUTE 1.78 10/3/uL (0.67-4.30); MANUAL DIFF NO %; MEAN CORPUSCULAR HEMOGLOB 29.6 pg (26.0-34.0); MEAN CORPUSCULAR VOLUME 92.5 fL (80-100); MEAN PLATELET VOLUME 8.4 fL (9.2-13.0); MONOCYTES 9.4 %; MONOCYTES ABSOLUTE 1.15 10/3/uL (0.21-1.20); NEUTROPHILS 73.4 %; NEUTROPHILS ABSOLUTE 8.94 10/3/uL (2.02-8.40); PLATELET COUNT 330 10/3/uL (150-400); WHITE BLOOD CELLS 12.2 10/3/uL (4.5-10.5)
[2017-04-17 04:11] LABS: INTERNATIONAL NORMAL RATI 2.9 UNITS (-); PROTIME (NOT ORD) 29.8 SEC (12.0-14.5)
[2017-04-17 04:21] LABS: A/G RATIO 0.4 (0.7-1.9); ALBUMIN 1.7 G/DL (3.5-5.0); ALKALINE PHOSPHATASE 80 U/L (45-117); CALCIUM, SERUM 7.9 MG/DL (8.5-10.4); CHLORIDE, SERUM 108 MMOL/L (96-112); CO2 (CARBON DIOXIDE) 23 MMOL/L (24-34); CREATININE 1.45 MG/DL (0.55-1.02); GFR AFRICAN AMERICAN 37 ML/MIN (>=60); GFR NON AFRICAN AMERICAN 32 ML/MIN (>=60); GLOBULIN 3.8 G/DL (2.5-4.1); GLUCOSE, SERUM 74 MG/DL (60-99); PHOSPHORUS, SERUM 2.3 MG/DL (2.5-4.5); POTASSIUM, SERUM 3.5 MMOL/L (3.5-5.3); SGOT(AST) 24 U/L (5-40); SGPT(ALT) 7 U/L (5-65); SODIUM, SERUM 140 MMOL/L (135-148); TOTAL BILIRUBIN 0.3 MG/DL (0-1.2); TOTAL PROTEIN 5.5 G/DL (6.0-8.5)
[2017-04-17 04:22] LABS: BUN (BLOOD UREA NITROGEN) 18 MG/DL (6-23)
[2017-04-17 11:45] LABS: PROCALCITONIN 0.21 ng/mL (<0.5)
[2017-04-18 09:10] LABS: BASOPHILS 0.2 %; BASOPHILS ABSOLUTE 0.02 10/3/uL (0.0-0.16); EOSINOPHILS 1.9 %; EOSINOPHILS ABSOLUTE 0.21 10/3/uL (0.0-0.53); HEMATOCRIT 25.6 % (36.0-48.0); HEMOGLOBIN 8.2 g/dL (12.0-16.0); IMMATURE GRANULOCYTES 0.5 %; IMMATURE GRANULOCYTES ABSOLUTE 0.06 10/3/uL (0.0-0.11); INTERNATIONAL NORMAL RATI 2.7 UNITS (-); LYMPHOCYTES 12.8 %; LYMPHOCYTES ABSOLUTE 1.42 10/3/uL (0.67-4.30); MEAN CORPUSCULAR HEMOGLOB 29.6 pg (26.0-34.0); MEAN CORPUSCULAR VOLUME 92.4 fL (80-100); MEAN PLATELET VOLUME 8.3 fL (9.2-13.0); MONOCYTES 10.1 %; MONOCYTES ABSOLUTE 1.12 10/3/uL (0.21-1.20); NEUTROPHILS 74.5 %; NEUTROPHILS ABSOLUTE 8.23 10/3/uL (2.02-8.40); PLATELET COUNT 384 10/3/uL (150-400); PROTIME (NOT ORD) 28.4 SEC (12.0-14.5); RBC DISTRIBUTION WIDTH 15.8 % (12.0-16.0); RED CELL COUNT 2.77 10/6/uL (4.0-5.6); WHITE BLOOD CELLS 11.1 10/3/uL (4.5-10.5)
[2017-04-18 09:19] LABS: BUN (BLOOD UREA NITROGEN) 16 MG/DL (6-23); CALCIUM, SERUM 8.1 MG/DL (8.5-10.4); CHLORIDE, SERUM 106 MMOL/L (96-112); CO2 (CARBON DIOXIDE) 26 MMOL/L (24-34); CREATININE 1.34 MG/DL (0.55-1.02); GFR AFRICAN AMERICAN 41 ML/MIN (>=60); GFR NON AFRICAN AMERICAN 36 ML/MIN (>=60); GLUCOSE, SERUM 63 MG/DL (60-99); POTASSIUM, SERUM 3.9 MMOL/L (3.5-5.3); SODIUM, SERUM 140 MMOL/L (135-148)
[2017-04-18 09:22] LABS: MANUAL DIFF NO %
[2017-04-19 07:01] LABS: BASOPHILS 0.1 %; BASOPHILS ABSOLUTE 0.01 10/3/uL (0.0-0.16); EOSINOPHILS 0.5 %; EOSINOPHILS ABSOLUTE 0.06 10/3/uL (0.0-0.53); IMMATURE GRANULOCYTES 0.5 %; IMMATURE GRANULOCYTES ABSOLUTE 0.06 10/3/uL (0.0-0.11); LYMPHOCYTES 11.1 %; LYMPHOCYTES ABSOLUTE 1.33 10/3/uL (0.67-4.30); MEAN CORPUS HGB CONC 31.8 g/dL (32.0-36.0); MEAN CORPUSCULAR HEMOGLOB 29.2 pg (26.0-34.0); MEAN CORPUSCULAR VOLUME 91.9 fL (80-100); MEAN PLATELET VOLUME 8.7 fL (9.2-13.0); MONOCYTES 8.4 %; MONOCYTES ABSOLUTE 1.01 10/3/uL (0.21-1.20); NEUTROPHILS 79.4 %; NEUTROPHILS ABSOLUTE 9.51 10/3/uL (2.02-8.40); PLATELET COUNT 280 10/3/uL (150-400); RBC DISTRIBUTION WIDTH 16.2 % (12.0-16.0)
[2017-04-19 07:03] LABS: HEMATOCRIT 31.8 % (36.0-48.0); HEMOGLOBIN 10.1 g/dL (12.0-16.0); MANUAL DIFF NO %; RED CELL COUNT 3.46 10/6/uL (4.0-5.6)
[2017-04-19 07:13] LABS: BUN (BLOOD UREA NITROGEN) 17 MG/DL (6-23); CALCIUM, SERUM 7.9 MG/DL (8.5-10.4); CHLORIDE, SERUM 108 MMOL/L (96-112); CO2 (CARBON DIOXIDE) 21 MMOL/L (24-34); CREATININE 1.29 MG/DL (0.55-1.02); GFR AFRICAN AMERICAN 43 ML/MIN (>=60); GFR NON AFRICAN AMERICAN 37 ML/MIN (>=60); GLUCOSE, SERUM 59 MG/DL (60-99); SODIUM, SERUM 141 MMOL/L (135-148)
[2017-04-19 07:14] LABS: POTASSIUM, SERUM 4.4 MMOL/L (3.5-5.3)
[2017-04-19 09:35] LABS: INTERNATIONAL NORMAL RATI 2.9 UNITS (-); PROTIME (NOT ORD) 29.9 SEC (12.0-14.5)
[2017-04-19 10:16] LABS: PROCALCITONIN 0.16 ng/mL (<0.5)
[2017-04-20 03:57] LABS: BASOPHILS 0.1 %; BASOPHILS ABSOLUTE 0.01 10/3/uL (0.0-0.16); EOSINOPHILS 0.6 %; EOSINOPHILS ABSOLUTE 0.06 10/3/uL (0.0-0.53); HEMOGLOBIN 9.4 g/dL (12.0-16.0); IMMATURE GRANULOCYTES 0.5 %; IMMATURE GRANULOCYTES ABSOLUTE 0.05 10/3/uL (0.0-0.11); LYMPHOCYTES 13.7 %; MEAN CORPUS HGB CONC 32.4 g/dL (32.0-36.0); MEAN CORPUSCULAR HEMOGLOB 29.5 pg (26.0-34.0); MEAN CORPUSCULAR VOLUME 90.9 fL (80-100); MEAN PLATELET VOLUME 8.2 fL (9.2-13.0); MONOCYTES 8.6 %; MONOCYTES ABSOLUTE 0.81 10/3/uL (0.21-1.20); NEUTROPHILS 76.5 %; NEUTROPHILS ABSOLUTE 7.23 10/3/uL (2.02-8.40); PLATELET COUNT 368 10/3/uL (150-400); RBC DISTRIBUTION WIDTH 15.7 % (12.0-16.0); RED CELL COUNT 3.19 10/6/uL (4.0-5.6); WHITE BLOOD CELLS 9.5 10/3/uL (4.5-10.5)
[2017-04-20 03:58] LABS: MANUAL DIFF NO %
[2017-04-20 04:09] LABS: BUN (BLOOD UREA NITROGEN) 17 MG/DL (6-23); CALCIUM, SERUM 7.5 MG/DL (8.5-10.4); CHLORIDE, SERUM 106 MMOL/L (96-112); CREATININE 1.27 MG/DL (0.55-1.02); GFR AFRICAN AMERICAN 44 ML/MIN (>=60); GFR NON AFRICAN AMERICAN 38 ML/MIN (>=60); POTASSIUM, SERUM 3.8 MMOL/L (3.5-5.3); SODIUM, SERUM 141 MMOL/L (135-148)
[2017-04-20 04:11] LABS: CO2 (CARBON DIOXIDE) 26 MMOL/L (24-34); GLUCOSE, SERUM 92 MG/DL (60-99)
[2017-04-20 04:16] LABS: INTERNATIONAL NORMAL RATI 2.7 UNITS (-); PROTIME (NOT ORD) 28.2 SEC (12.0-14.5)
[2017-05-09] MEDS ORDERED: MIRALAX POWDER1 PKT PO (15:20)
[2017-05-09] MEDS ORDERED: L20 PO (15:20)
[2017-05-09] MEDS ORDERED: LEVAQUIN750 MG PO (15:22)
[2017-05-09] MEDS ORDERED: KLOR-CON 1010 MEQ PO (15:24)
[2017-05-09] MEDS ORDERED: SODBICAR10 PO (15:29)
[2017-05-09] MEDS ORDERED: COUMADIN3 MG PO (15:33)
[2017-05-09] MEDS ORDERED: SILTUSSIN100 MG/5 M PO (15:35)
== END 2017-04-20 14:40 | DRG 871 ==
LOC: ER 16:47 → 6NO 20:28 → CCU 04-07 16:55 → 6NO 04-10 16:13 → SDC/OF 04-16 15:17 → 6NO 04-16 15:18
PROVIDERS: Emergency Medicine; Family Medicine; Hospitalist; Internal Medicine; Internal Medicine Pulmonary Disease; Nurse Practitioner Family; Physical Medicine & Rehabilitation
PROC: 02HV33Z Insertion of Infusion Device into Superior Vena Cava, Percutaneous Approach (ICD-10-PCS; principal; 2017-04-07)
DX: A41.9 Sepsis, unspecified organism (principal); R65.21 Severe sepsis with septic shock; I26.09 Other pulmonary embolism with acute cor pulmonale; I21.4 Non-ST elevation (NSTEMI) myocardial infarction; N12 Tubulo-interstitial nephritis, not specified as acute or chronic; G92 Toxic encephalopathy; B96.20 Unspecified Escherichia coli [E. coli] as the cause of diseases classified elsewhere; D46.9 Myelodysplastic syndrome, unspecified; I50.21 Acute systolic (congestive) heart failure; N17.9 Acute kidney failure, unspecified; E87.2 Acidosis; I24.8 Other forms of acute ischemic heart disease; I13.0 Hypertensive heart and chronic kidney disease with heart failure and stage 1 through stage 4 chronic kidney disease, or unspecified chronic kidney disease; I27.2 Other secondary pulmonary hypertension; N18.3 Chronic kidney disease, stage 3 (moderate); D50.9 Iron deficiency anemia, unspecified; M81.0 Age-related osteoporosis without current pathological fracture; K21.9 Gastro-esophageal reflux disease without esophagitis; R19.7 Diarrhea, unspecified; F03.90 Unspecified dementia, unspecified severity, without behavioral disturbance, psychotic disturbance, mood disturbance, and anxiety; E86.9 Volume depletion, unspecified; K62.9 Disease of anus and rectum, unspecified; I49.1 Atrial premature depolarization; I49.3 Ventricular premature depolarization; Z88.5 Allergy status to narcotic agent; Z88.0 Allergy status to penicillin; Z86.718 Personal history of other venous thrombosis and embolism; Z85.41 Personal history of malignant neoplasm of cervix uteri; Z87.442 Personal history of urinary calculi
CPT/HCPCS: 36569; 36600; 71010; 76775; 78582; 80048; 80053; 81001; 82272; 82728; 82805; 83605; 83735; 84100; 84145; 84484; 85014; 85018; 85025; 85610; 85730; 86140; 87040; 87077; 87086; 87186; 87493; 87493-59; 87641; 92610-GN; 93005; 93306; 94762; 96374; 97110-GO; 97161-GP; 97166-GO; 97530-GO; 97530-GP; 99285; A9270-GY; A9540; A9567; C1751; G8978-CM-GP; G8979-CL-GP; G8987-CL-GO; G8988-CK-GO; G8996-CJ-GN; G8997-CJ-GN; G8998-CJ-GN; J0690; J0692; J1956; J2405; J3370; P9045

== ENCOUNTER 2017-07-21 11:58 | Inpatient (IN) | payer MEDICARE, OTHER ==
[~2017-07-21] VITALS: Ht 152.4 cm; Wt 61.2 kg
--- NOTE | ~2017-07-21 | DS ---
Discharge Summary [facility] [address] [place]. [address] NAME: ARDEN SIDDIQI : 30 STATUS : DIS IN PAT#: [id number] AGE: 87 ADM/REG DATE : 07/21/17 MR#: [id number] REPORT SERV DATE: 08/02/17 DICTATED BY: REYES PINO DATE: 08/02/17 REPORT STATUS : Draft TRANSCRIBED BY: EBONIE DATE: 08/02/17 ADMISSION DATE: 07/21/2017 DISCHARGE DATE: 08/02/2017 This dictation is an addition to interim discharge summary dictated by Dr. Villareal on 07/29/2017. I assumed care of the patient 07/30/2017. 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 At the time of my evaluation, the patient has a history of dementia and the patient was very lethargic. At the time of my assumption of care, the patient was not able to eat any p.o. diet, and she was unable to communicate and spent most of her time moaning and groaning. Given her prognosis, Palliative Care was consulted for assistance. Palliative care had several meetings with family. I also had a meeting with family, and after much discussion, the family agreed for the patient to be transferred to hospice this morning. I was called by the nursing staff at 1731 hours that the patient had gone into asystole. At the time of my evaluation, I noted that the patient had no spontaneous breath sounds. She had no heart sounds. No carotid pulses were palpated. The patient did not respond to verbal or tactile stimuli. Her pupils were fixed and dilated. The patient was pronounced at 1751 hours. March her soul rest in peace. CAMILLA/EBONIE Reyes Pino MD / [id number] CC: MD Sandeep Barrett M.D.
--- NOTE | ~2017-07-21 | CN ---
Consultation Report [facility] [address] [place]. [address] NAME: ARDEN SIDDIQI : 30 STATUS : ADM IN [facility]#: [id number] AGE: 87 ADM/REG DATE : 07/21/17 MR#: [id number] REPORT SERV DATE: 07/22/17 DICTATED BY: CARSON IQBAL DATE: 07/21/17 REPORT STATUS : Draft TRANSCRIBED BY: EBONIE DATE: 07/21/17 DATE OF CONSULTATION: 07/21/2017 REASON FOR CONSULT: Right foot gangrene. BRIEF HISTORY OF PRESENT ILLNESS: This is an 87-year-old female with a history of dementia, hypertension, hyperlipidemia, remote history of cervical cancer, history of DVT among other comorbidities, who presented to the emergent room for her assisted with right lower extremity wet gangrene. She has had this wound on her right lower extremity for an extended period of time per her daughter when I was doing local wound care at the assisted. However, over the last several days, she has noticed a foul odor coming from the wound, and she felt like it is progressively getting worse. REVIEW OF SYSTEMS: The patient is unable to express review of systems due to extent of dementia, however, per the daughter has had no complaints of chest pain, shortness of breath. Questionable fevers and chills. PAST MEDICAL HISTORY: Includes hypertension, dementia, urinary tract infection, hip fracture, gastroesophageal reflux disease, history of DVT, history of cervical cancer, myelodysplasia, and history of chronic kidney disease stage 3. PAST SURGICAL HISTORY: Includes hysterectomy and hip surgery. SOCIAL HISTORY: She denies tobacco, alcohol, or illicit drug use. FAMILY HISTORY: There is a history of hypertension, otherwise unable to obtain. ALLERGIES: SHE IS ALLERGIC TO PENICILLIN, LORAZEPAM, CLONAZEPAM, AND HYDROCODONE. MEDICATIONS: All medications were reviewed. She is not on any anticoagulation agent at this time. PHYSICAL EXAMINATION: VITAL SIGNS: Heart rate is between 70 and 130 and erratic, blood pressure is 107/60, respirations are 18, and she is on nasal cannula. GENERAL: She is in no acute distress. Elderly female, comfortable. HEENT: There is no scleral icterus. Pupils are reactive. Mucous membranes are moist. NECK: Supple. No evidence of JVD. CARDIAC: Currently irregularly irregular with atrial fibrillation seen on the monitor. PULMONARY: Clear bilaterally, although decreased in the bases. ABDOMEN: Abdomen is soft, nontender, and nondistended. No rebound or guarding. EXTREMITIES: The right lower extremity demonstrates wet gangrene of the 5th toe and dry gangrene of the first toe as well as mixed dry and wet gangrene of the plantar aspect of the forefoot showed decreased pulses in bilateral lower extremities. The left lower extremity Consultation Report [address] [place]. [address] NAME: ARDEN SIDDIQI : 30 STATUS : ADM IN PAT#: [id number] AGE: 87 ADM/REG DATE : 07/21/17 MR#: [id number] REPORT SERV DATE: 07/22/17 DICTATED BY: CARSON IQBAL DATE: 07/21/17 REPORT STATUS : Draft TRANSCRIBED BY: EBONIE DATE: 07/21/17 is warm and . LABORATORY DATA: White count is 19.4, hemoglobin 10.4, and platelets 371. Sodium 150, potassium is 4.5, chloride 114, bicarb 25, BUN 24, creatinine 1.9, glucose is 84, AST is 78, ALT is 9, alkaline phosphatase is 20, albumin 1.7, and total protein 6.9. X-ray of the right foot is concerning for osteo in the 5th toe and possibly in the metatarsal joint space. Final report is pending. 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 Based on her physical exam and current status, I recommend incision and drainage of the right foot with first and fifth toe amputation and possible transmetatarsal amputation. She is being admitted to the hospitalist currently. I will start her on broad-spectrum antibiotics. She is currently in atrial fibrillation and the hospitalist in the process of ensuring rate control with medication bilateral lower extremity arterial Duplex to further assess her bilateral lower extremity arterial disease. I have discussed in detail my recommendations with the patient's family at bedside. Risks and benefits of the procedure noted above were discussed in detail with family, and they agreed to proceed with the plan. EC/MODL Carson Iqbal, / [id number] CC: Tony Lopez MD
--- NOTE | ~2017-07-21 | OP ---
Record Of Operation [facility] [address] [place]. [address] NAME: ARDEN SIDDIQI : 30 STATUS : ADM IN PAT#: [id number] AGE: 87 ADM/REG DATE : 07/21/17 MR#: [id number] REPORT SERV DATE: 07/26/17 DICTATED BY: CARSON IQBAL DATE: 07/25/17 REPORT STATUS : Draft TRANSCRIBED BY: MODL DATE: 07/25/17 DATE OF PROCEDURE: 07/23/2017 SURGEON: Carson Iqbal DO [employer] UNDERWRITER: Nay. PREPROCEDURAL DIAGNOSIS: Right foot gangrene. POSTOPERATIVE DIAGNOSIS: Right foot gangrene. PROCEDURE PERFORMED: 1. Incision and drainage of right foot deep tissue abscess. 2. Sharp debridement of skin, subcutaneous tissue, fascia, and tendon of the right foot. 3. Transmetatarsal amputation. 4. Placement of negative pressure dressing on a 15 cm x 12 cm x 2 cm wound of the right foot. ANESTHESIA: General. ESTIMATED BLOOD LOSS: 20 mL. PROCEDURE PERFORMED IN DETAIL: After consent was obtained, the patient was taken to the operating suite and laid in a supine position. She was placed under general anesthesia and endotracheally intubated. Her right foot was prepped and draped in the usual sterile fashion. A large black eschar of the right foot on the plantar surface was unroofed with a #15 blade which released large amounts of pus which was sent for Gram stain and culture. The skin, subcutaneous tissue, fat pad, and tendon of the plantar surface of the foot were debrided back to healthy tissue. There was a that appeared to go into the deep fat pad and the plantar surface towards the heel which was opened with a vertical incision using a #15 blade. The necrotic tissue was sharply debrided. Next, the incision was carried around the dorsal surface of the foot to get the tissue just proximal to the metatarsal head . The subcutaneous tissue and left-sided tendon proximal to the metatarsal head . The wound was irrigated copiously with normal saline. Hemostasis was achieved. A black sponge was placed over the wound and fastened to the negative pressure therapy device. Good seal was obtained. The patient tolerated procedure well, was awakened from anesthesia, she was moved to the PACU in condition. EC/MODL Carson Iqbal DO Record Of Operation [address] [facility] [place] [address] NAME: ARDEN SIDDIQI : 30 STATUS : ADM IN PAT#: [id number] AGE: 87 ADM/REG DATE : 07/21/17 MR#: [id number] REPORT SERV DATE: 07/26/17 DICTATED BY: CARSON IQBAL DATE: 07/25/17 REPORT STATUS : Draft TRANSCRIBED BY: EBONIE DATE: 07/25/17 / [id number] CC: Elian Casey M.D.
--- NOTE | ~2017-07-21 | OP ---
Record Of Operation [facility] [address] [place]. [address] NAME: ARDEN SIDDIQI : 30 STATUS : ADM IN PAT#: [id number] AGE: 87 ADM/REG DATE : 07/21/17 MR#: [id number] REPORT SERV DATE: 07/26/17 DICTATED BY: CARSON IQBAL DATE: 07/25/17 REPORT STATUS : Draft TRANSCRIBED BY: EBONIE DATE: 07/25/17 DATE OF PROCEDURE: 07/25/2017 PREPROCEDURAL DIAGNOSIS: Right foot methicillin-resistant Staphylococcus aureus abscess. POSTOPERATIVE DIAGNOSIS: Right foot methicillin-resistant Staphylococcus aureus abscess. PROCEDURE PERFORMED: Right above knee amputation. ANESTHESIA: General. ESTIMATED BLOOD LOSS: 50 mL. PROCEDURE PERFORMED IN DETAIL: After consent was obtained, the patient was taken to the operating suite and laid in the supine position. She was placed under general anesthesia and endotracheally intubated. The right lower extremity was fastened with a sterile tourniquet. A fish-mouth incision was marked out with a sterile marking pen. A #10 blade was used to incise the skin. Electrocautery was used to dissect down to the subcutaneous tissue, fascia, and muscle down to the femur. The femur was dissected out circumferentially and cleared of all tissue. The femur was then transected with a bone saw and the distal portion elevated with a bone hook. The posterior flap muscle was then transected with electrocautery and the right lower leg was sent for specimen. The superficial femoral artery and vein were transected between hemostats and ligated with 2-0 Vicryl separately. The nerve was isolated and tied with 2-0 Vicryl as proximal as possible and transected. It was anesthetized with Marcaine as a nerve block. The proximal femur was smoothed with a rasp. Small bleeding portions of the muscle were ligated with 3-0 Vicryl suture. Hemostasis was achieved. The wound was irrigated copiously with normal saline. The fascia was then closed over the bone with 0 Vicryl. The subcutaneous tissue was approximated with 2-0 Vicryl. The skin was closed with alternating 3-0 nylon suture in a vertical mattress fashion with skin nicola. The incision was covered with Xeroform gauze, followed by 4 x 4, and Kerlix and Rahul bandage and foam tape. The patient tolerated the procedure well and was awaken from anesthesia. She was moved to the PACU in good condition. EC/MODL Carson Iqbal DO / [id number] CC: Elian Casey M.D.
--- NOTE | ~2017-07-21 | HP ---
History And Physical [place] [id number] [facility]. [address] NAME: ARDEN SIDDIQI : 30 STATUS : ADM IN [facility]#: [id number] AGE: 87 ADM/REG DATE : 07/21/17 MR#: [id number] REPORT SERV DATE: 07/21/17 DICTATED BY: TONY ROCHA DATE: 07/21/17 REPORT STATUS : Draft TRANSCRIBED BY: MODL DATE: 07/21/17 DATE OF ADMISSION: 07/21/2017 CHIEF COMPLAINT: Right foot gangrene. HISTORY OF PRESENT ILLNESS: This is an 87-year-old lady with history of hypertension, hyperlipidemia, chronic kidney disease, protein calorie malnutrition, who is chronically debilitated and who is a resident of [facility], presenting with a right foot gangrene. The patient apparently has had right foot ulcer for about 2 months now. The patient has been receiving wound care at [facility], but unfortunately the wound continued to get worse. Over the past two weeks or so, it rapidly progressed to become infected with foul smelling discharges. The patient apparently had an ultrasound evaluation at the facility that was positive for occlusive disease, and the patient was given an office appointment with Dr. Whittaker, which is coming in the next few weeks. In the meantime, the patient's right foot wound got worse and she actually started developing right foot gangrene, and thus she was brought to the ER for further evaluation and care. In the ER, the patient was found to be afebrile and hemodynamically stable. Initial lab evaluation revealed hypernatremia with sodium of 150. The patient was also found to have a significant leukocytosis with white blood cell count of 19.4. Internal Medicine consultation was thus requested for admission of the patient for further evaluation and care. Also, Dr. Queen, from vascular surgery, was consulted from ER who is planning to take her to the OR tomorrow. Please note that the above H and P is obtained from the patient's family members as well as from careful review of existing medical records as the patient herself is unable to provide any valuable history. REVIEW OF SYSTEMS: Unable to be obtained from the patient reliably. MEDICATIONS: 1. Vitamin C 500 mg p.o. b.i.d. 2. Coreg 3.125 mg p.o. b.i.d. 3. Chlorhexidine rinse p.o. every 12 hours. 4. Voltaren gel topical twice daily to both shoulders. 5. Aricept 10 mg p.o. daily. 6. Cymbalta 30 mg p.o. daily. 7. Lasix 20 mg p.o. q.p.m. 8. Namenda 10 mg p.o. daily. 9. Flagyl 500 mg every 48 hours. 10.Centrum one tablet p.o. daily. 11.Prilosec 40 mg p.o. b.i.d. 12.MiraLAX one packet p.o. daily. 13.Potassium 110 mEq p.o. daily. 14.Sodium bicarb 650 mg p.o. three times daily. History And Physical [address] [place]. [address] NAME: ARDEN SIDDIQI : 30 STATUS : ADM IN [facility]#: [id number] AGE: 87 ADM/REG DATE : 07/21/17 MR#: [id number] REPORT SERV DATE: 07/21/17 DICTATED BY: TONY ROCHA DATE: 07/21/17 REPORT STATUS : Draft TRANSCRIBED BY: EBONIE DATE: 07/21/17 15.Timolol 1 drop to both eyes twice daily. 16.Ultram 25 mg p.o. q.6 hours p.r.n. 17.Coumadin 2 mg p.o. q.p.m. ALLERGIES: 1. PENICILLINS. 2. LORAZEPAM. 3. HYDROCODONE. 4. KLONOPIN. PAST MEDICAL HISTORY: 1. Hypertension. 2. Hyperlipidemia. 3. Myelodysplastic syndrome. 4. Osteoporosis. 5. Chronic kidney disease, stage III. 6. History of ESBL urinary tract infections. 7. Severe protein-caloric malnutrition. 8. Atrial fibrillation. 9. History of PE. 10.Functional quadriplegia. PAST SURGICAL HISTORY: 1. Hysterectomy. 2. Cholecystectomy. 3. C-sections x3. FAMILY HISTORY: 1. Gastric cancer. 2. Breast cancer. 3. Heart diseases. 4. CVAs. SOCIAL HISTORY: The patient does not smoke, drink alcohol, or use any illicit drugs. The patient is quite debilitated at baseline, and she is a resident of [facility]. PHYSICAL EXAMINATION: VITAL SIGNS: Temperature 98, blood pressure 98/74, pulse 81, respiratory rate is 18, and saturating 100% on room air. GENERAL: The patient is alert and oriented x3, with no focal neurologic deficits. The patient is awake, does not appear to be in acute distress, and she is cooperative. NECK: No JVD. No lymphadenopathy. Normal thyroid. CHEST: No midline sternotomy scar and no tenderness to palpation. LUNGS: Clear to auscultation bilaterally with normal respiratory effort on room air. CARDIOVASCULAR: The patient has regular rate and rhythm with no murmurs, rubs, or gallops, and PMI is nondisplaced. ABDOMEN: Soft, nontender with active bowel sounds, and no organomegaly. History And Physical [address] [address] NAME: ARDEN SIDDIQI : 30 STATUS : ADM IN [facility]#: [id number] AGE: 87 ADM/REG DATE : 07/21/17 MR#: [id number] REPORT SERV DATE: 07/21/17 DICTATED BY: TONY ROCHA DATE: 07/21/17 REPORT STATUS : Draft TRANSCRIBED BY: EBONIE DATE: 07/21/17 EXTREMITIES: The patient's right foot is gangrenous and pulseless. Otherwise, no calf tenderness. SKIN: Clean, dry, warm, and intact. LABORATORY DATA: Sodium is 150, potassium is 4.5, chloride is 114, BUN is 24, creatinine is 1.69, glucose 84, and calcium 8.1. LFTs are within normal limits. White blood cell count is 19.4, hemoglobin 10.4, and platelets 371. INR is 1.7. Lactate is 1.7. Ultrasound at bedside revealed occlusive disease of her right lower extremity as well as an acute right lower extremity DVT. ASSESSMENT: This is an 87-year-old lady with history of hypertension, hyperlipidemia, chronic kidney disease, atrial fibrillation, and history of pulmonary embolism, amongst many other medical conditions, presenting with an acute right foot gangrene and deep vein thrombosis. 1. Right foot gangrene with occlusive disease to right lower extremity. 2. Right lower extremity acute DVT. 3. Peripheral artery disease. 4. Hypernatremia. 5. Leukocytosis with white blood cell count of 19.4. 6. Chronic atrial fibrillation. 7. Hypertension. 8. Hyperlipidemia. 9. Chronic kidney disease, stage 3. 10.Functional paraplegia. 11.Debilitated with protein calorie malnutrition. PLAN: The plan is to admit the patient as an inpatient. The patient will be monitored under telemetry monitoring. The patient will be given IV fluid resuscitation, and I will start her on heparin drip as well as antibiotic therapy. Vascular Surgery consultation has already been requested, and the patient should go to the OR in the morning. In the meantime, I will monitor her in's and out's, electrolytes, CBC, and procalcitonin level, and I will also have Nutrition and Wound Care evaluate the patient. I will also check a prealbumin level to check a nutritional status. For the rest of stable past medical conditions including hypertension, hyperlipidemia, chronic kidney disease, et al., I will continue home medications and/or monitor and treat as needed. Standard DVT prophylaxis. The patient is full code at this time. LATA/EBONIE Tony Rocha MD / [id number] CC: History And Physical [address] [address] NAME: ARDEN SIDDIQI : 30 STATUS : ADM IN [facility]#: [id number] AGE: 87 ADM/REG DATE : 07/21/17 MR#: [id number] REPORT SERV DATE: 07/21/17 DICTATED BY: TONY ROCHA DATE: 07/21/17 REPORT STATUS : Draft TRANSCRIBED BY: MODMarianne DATE: 07/21/17 Chet Quintero M.D.
--- NOTE | ~2017-07-21 | IDS ---
Interim Discharge Summary [facility] [address] [place]. [address] NAME: ARDEN SIDDIQI : 30 STATUS : ADM IN [facility]#: [id number] AGE: 87 ADM/REG DATE : 07/21/17 MR#: [id number] REPORT SERV DATE: 07/29/17 DICTATED BY: Sania TORRES DATE: 07/29/17 REPORT STATUS : Draft TRANSCRIBED BY: MODL DATE: 07/29/17 ADMISSION DATE: 07/21/2017 DISCHARGE DATE: INTERIM DISCHARGE SUMMARY INTERIM SUMMARY DATE: 07/29/2017. DIAGNOSES AT THE TIME OF INTERIM SUMMARY: Hypomagnesemia, hypophosphatemia, paroxysmal atrial fibrillation, metabolic encephalopathy, gangrene right leg status post [id number] amputation, profound hypoglycemia requiring D50 infusion, dementia, severe protein-calorie malnutrition, chronic kidney disease stage 3, DVT right leg status post amputation, and multifactorial anemia. ACTIVE CONSULTATIONS: None. PROCEDURES: Above the knee amputation on the right. BRIEF HOSPITAL COURSE: An 87-year-old, frail, elderly female patient with multiple medical problems, was admitted with sepsis related to gangrenous changes of the right foot, seen by Vascular Surgery. Ultimately taken for above the knee amputation. The patient was on broad spectrum antimicrobial agents that were continued for 72 hours post amputation and discontinued. The most complicating thing of her hospital stay has been a combination of encephalopathy related to her dementia and multiple medical problems and severe hypoglycemia that has required infusion of D50 to maintain adequate blood glucose. Labs have been sent off and urine screen for sulfonylureas have been sent. Currently, her C-peptide level is elevated and endogenous insulin is slightly elevated. Her sulfonylurea screen is pending. The patient recently had a urine culture that was positive for yeast consistent with colonization. Her Bush has been changed. She continues to be observed off antibiotics. The patient continues to be quite frail and remains in intermediate care. She is a DNR DNI per family request. Followup laboratory for her multiple issues has been ordered for 07/30/2017. CURRENT MEDICATIONS: Include vitamin C 500 b.i.d.; atorvastatin 20 at bedtime; Bumex 2 mg every 8 hours IV; carvedilol 3.125 b.i.d.; Aricept 10 daily; duloxetine 30 mg daily; subcu insulin level 2, correction insulin; Synthroid 25 mcg daily. Multivitamin 1 daily. Namenda 10 mg daily. Protonix 40 daily. MiraLAX one packet daily. Timolol 0.5 to both eyes twice a day. The patient continues on D50 infusion currently at 25 an hour with plans to wean as tolerated. Further recommendations for treatment pending input from another member of the hospitalist team starting 07/30/2017, as well as adjustment in therapy once her sulfonylurea screen is finalized. Interim Discharge Summary [address] [address] NAME: ARDEN SIDDIQI : 30 STATUS : ADM IN [facility]#: [id number] AGE: 87 ADM/REG DATE : 07/21/17 MR#: [id number] REPORT SERV DATE: 07/29/17 DICTATED BY: Sania TORRES DATE: 07/29/17 REPORT STATUS : Draft TRANSCRIBED BY: EBONIE DATE: 07/29/17 [facility]/EBONIE Sania Torres M.D. / [id number] CC: MD Sandeep Carrillo II, M.D.
[~2017-07-21 11:58] MED LIST changes: +COREG3 PO; +COUMADIN3 MG PO; +ELDERTONIC PO; +FERROUS SULF325 M1 PO; +KLOR-CON 1010 MEQ PO; +L20 PO; +LEVAQUIN750 MG PO; +MIRALAX POWDER1 PKT PO; +MOMUD PO; +NAMENDA10 MG PO; +PRILOSEC OTC20 MG PO; +SILTUSSIN100 MG/5 M PO; +SODBICAR10 PO; +THERGRANM PO; +VITC500 PO; +VOLTAREN1 % TOP
[2017-07-21 13:34] LABS: BASOPHILS 0.2 %; BASOPHILS ABSOLUTE 0.03 10/3/uL (0.0-0.16); EOSINOPHILS 0.3 %; EOSINOPHILS ABSOLUTE 0.06 10/3/uL (0.0-0.53); HEMATOCRIT 32.4 % (36.0-48.0); HEMOGLOBIN 10.4 g/dL (12.0-16.0); IMMATURE GRANULOCYTES 0.4 %; IMMATURE GRANULOCYTES ABSOLUTE 0.07 10/3/uL (0.0-0.11); LYMPHOCYTES ABSOLUTE 1.95 10/3/uL (0.67-4.30); MEAN CORPUS HGB CONC 32.1 g/dL (32.0-36.0); MEAN CORPUSCULAR HEMOGLOB 29.6 pg (26.0-34.0); MEAN CORPUSCULAR VOLUME 92.3 fL (80-100); MEAN PLATELET VOLUME 9.7 fL (9.2-13.0); MONOCYTES 4.6 %; MONOCYTES ABSOLUTE 0.89 10/3/uL (0.21-1.20); NEUTROPHILS 84.5 %; NEUTROPHILS ABSOLUTE 16.42 10/3/uL (2.02-8.40); PLATELET COUNT 371 10/3/uL (150-400); RBC DISTRIBUTION WIDTH 19.3 % (12.0-16.0); RED CELL COUNT 3.51 10/6/uL (4.0-5.6); WHITE BLOOD CELLS 19.4 10/3/uL (4.5-10.5)
[2017-07-21 13:35] LABS: MANUAL DIFF NO %
[2017-07-21 13:48] LABS: ALBUMIN 1.7 G/DL (3.5-5.0); ALKALINE PHOSPHATASE 78 U/L (45-117); CALCIUM, SERUM 8.1 MG/DL (8.5-10.4); CHLORIDE, SERUM 114 MMOL/L (96-112); CO2 (CARBON DIOXIDE) 25 MMOL/L (24-34); CREATININE 1.69 MG/DL (0.55-1.02); GFR AFRICAN AMERICAN 31 ML/MIN (>=60); GFR NON AFRICAN AMERICAN 27 ML/MIN (>=60); GLUCOSE, SERUM 84 MG/DL (60-99); INTERNATIONAL NORMAL RATI 1.7 UNITS (-); PARTIAL THROMBO TIME 28.6 SEC (22.5-37.2); POTASSIUM, SERUM 4.5 MMOL/L (3.5-5.3); SGOT(AST) 20 U/L (5-40); SGPT(ALT) 9 U/L (5-65)
[2017-07-21 13:49] LABS: A/G RATIO 0.3 (0.7-1.9); BUN (BLOOD UREA NITROGEN) 24 MG/DL (6-23); GLOBULIN 5.2 G/DL (2.5-4.1); PROTIME (NOT ORD) 19.6 SEC (12.0-14.5); SODIUM, SERUM 150 MMOL/L (135-148); TOTAL BILIRUBIN 0.9 MG/DL (0-1.2); TOTAL PROTEIN 6.9 G/DL (6.0-8.5)
[2017-07-21 14:17] LABS: LACTATE 1.7 MMOL/L (0.3-2.4)
[2017-07-21] MEDS ORDERED: COREG3 PO (15:11)
[2017-07-21] MEDS ORDERED: PERIDEX PO (15:12)
[2017-07-21] MEDS ORDERED: VOLTAREN1 % TOP ×2 (15:12→15:18)
[2017-07-21] MEDS ORDERED: ARICEPT10 PO (15:13)
[2017-07-21] MEDS ORDERED: L20 PO (15:13)
[2017-07-21] MEDS ORDERED: CYMBALTA30 PO (15:13)
[2017-07-21] MEDS ORDERED: NAMENDA10 MG PO (15:14)
[2017-07-21] MEDS ORDERED: PRILOSEC40 MG PO (15:16)
[2017-07-21] MEDS ORDERED: FLAG500TAB PO (15:16)
[2017-07-21] MEDS ORDERED: MIRALAX POWDER1 PKT PO (15:16)
[2017-07-21] MEDS ORDERED: SODBICAR10 PO (15:17)
[2017-07-21] MEDS ORDERED: CENTRUM PO (15:17)
[2017-07-21] MEDS ORDERED: KDUR10 PO (15:17)
[2017-07-21] MEDS ORDERED: C2 PO (15:18)
[2017-07-21] MEDS ORDERED: TIMOLOL MAL0.5 % OPH (15:18)
[2017-07-21] MEDS ORDERED: VITC500 PO (15:36)
[2017-07-21] MEDS ORDERED: ULTRAM50 PO (15:38)
[2017-07-22 04:43] LABS: BASOPHILS 0.1 %; BASOPHILS ABSOLUTE 0.01 10/3/uL (0.0-0.16); EOSINOPHILS 0.8 %; EOSINOPHILS ABSOLUTE 0.14 10/3/uL (0.0-0.53); HEMATOCRIT 28.3 % (36.0-48.0); HEMOGLOBIN 8.9 g/dL (12.0-16.0); IMMATURE GRANULOCYTES 0.5 %; IMMATURE GRANULOCYTES ABSOLUTE 0.08 10/3/uL (0.0-0.11); LYMPHOCYTES 11.1 %; LYMPHOCYTES ABSOLUTE 1.84 10/3/uL (0.67-4.30); MANUAL DIFF NO %; MEAN CORPUS HGB CONC 31.4 g/dL (32.0-36.0); MEAN CORPUSCULAR HEMOGLOB 28.9 pg (26.0-34.0); MEAN CORPUSCULAR VOLUME 91.9 fL (80-100); MEAN PLATELET VOLUME 9.2 fL (9.2-13.0); MONOCYTES 3.7 %; MONOCYTES ABSOLUTE 0.61 10/3/uL (0.21-1.20); NEUTROPHILS 83.8 %; NEUTROPHILS ABSOLUTE 13.96 10/3/uL (2.02-8.40); PLATELET COUNT 309 10/3/uL (150-400); RBC DISTRIBUTION WIDTH 19.2 % (12.0-16.0); RED CELL COUNT 3.08 10/6/uL (4.0-5.6); WHITE BLOOD CELLS 16.6 10/3/uL (4.5-10.5)
[2017-07-22 04:50] LABS: INTERNATIONAL NORMAL RATI 2.5 UNITS (-)
[2017-07-22 04:53] LABS: PROTIME (NOT ORD) 27.1 SEC (12.0-14.5)
[2017-07-22 04:55] LABS: BUN (BLOOD UREA NITROGEN) 22 MG/DL (6-23); CALCIUM, SERUM 7.4 MG/DL (8.5-10.4); CHLORIDE, SERUM 108 MMOL/L (96-112); CO2 (CARBON DIOXIDE) 25 MMOL/L (24-34); CREATININE 1.66 MG/DL (0.55-1.02); GFR AFRICAN AMERICAN 32 ML/MIN (>=60); GFR NON AFRICAN AMERICAN 27 ML/MIN (>=60); POTASSIUM, SERUM 3.7 MMOL/L (3.5-5.3); SODIUM, SERUM 146 MMOL/L (135-148)
[2017-07-22 04:57] LABS: GLUCOSE, SERUM 287 MG/DL (60-99)
[2017-07-22 05:04] LABS: PARTIAL THROMBO TIME > 150.0 SEC (22.5-37.2)
[2017-07-22 05:09] LABS: PREALBUMIN 3.6 MG/DL (17.0-43.0)
[2017-07-22 22:39] LABS: ASCORBIC ACID (UR NOT ORDER) 40 (NEG); BILIRUBIN, URINE NEGATIVE (NEG); KETONE, URINE TRACE MG/DL (NEG); LEUKOCYTE ESTERASE(NOT OR LARGE (NEG); WBC (NOT ORDERED) (RFLEX) 145 (0-5)
[2017-07-23 05:39] LABS: BASOPHILS 0.1 %; BASOPHILS ABSOLUTE 0.02 10/3/uL (0.0-0.16); EOSINOPHILS 1.8 %; HEMATOCRIT 27.6 % (36.0-48.0); HEMOGLOBIN 8.8 g/dL (12.0-16.0); IMMATURE GRANULOCYTES 0.5 %; IMMATURE GRANULOCYTES ABSOLUTE 0.08 10/3/uL (0.0-0.11); LYMPHOCYTES 9.2 %; LYMPHOCYTES ABSOLUTE 1.55 10/3/uL (0.67-4.30); MANUAL DIFF NO %; MEAN CORPUS HGB CONC 31.9 g/dL (32.0-36.0); MEAN CORPUSCULAR HEMOGLOB 29.4 pg (26.0-34.0); MEAN CORPUSCULAR VOLUME 92.3 fL (80-100); MEAN PLATELET VOLUME 9.6 fL (9.2-13.0); MONOCYTES ABSOLUTE 0.67 10/3/uL (0.21-1.20); NEUTROPHILS 84.4 %; NEUTROPHILS ABSOLUTE 14.28 10/3/uL (2.02-8.40); NUCLEATED RED BLOOD CELLS 0.2 /100WBC (0-0); PLATELET COUNT 276 10/3/uL (150-400); RBC DISTRIBUTION WIDTH 19.4 % (12.0-16.0); RED CELL COUNT 2.99 10/6/uL (4.0-5.6); WHITE BLOOD CELLS 16.9 10/3/uL (4.5-10.5)
[2017-07-23 05:44] LABS: INTERNATIONAL NORMAL RATI 2.3 UNITS (-); PROTIME (NOT ORD) 24.8 SEC (12.0-14.5)
[2017-07-23 05:52] LABS: A/G RATIO 0.3 (0.7-1.9); ALBUMIN 1.5 G/DL (3.5-5.0); ALKALINE PHOSPHATASE 67 U/L (45-117); BUN (BLOOD UREA NITROGEN) 21 MG/DL (6-23); CALCIUM, SERUM 7.9 MG/DL (8.5-10.4); CHLORIDE, SERUM 113 MMOL/L (96-112); CO2 (CARBON DIOXIDE) 22 MMOL/L (24-34); GFR AFRICAN AMERICAN 33 ML/MIN (>=60); GFR NON AFRICAN AMERICAN 29 ML/MIN (>=60); GLOBULIN 4.5 G/DL (2.5-4.1); SGOT(AST) 19 U/L (5-40); SGPT(ALT) 10 U/L (5-65); SODIUM, SERUM 146 MMOL/L (135-148); TOTAL BILIRUBIN 0.7 MG/DL (0-1.2)
[2017-07-23 05:55] LABS: GLUCOSE, SERUM 119 MG/DL (60-99); PHOSPHORUS, SERUM 2.9 MG/DL (2.5-4.5)
[2017-07-24 06:22] LABS: BASOPHILS 0.1 %; BASOPHILS ABSOLUTE 0.01 10/3/uL (0.0-0.16); EOSINOPHILS 3.3 %; EOSINOPHILS ABSOLUTE 0.45 10/3/uL (0.0-0.53); HEMATOCRIT 26.7 % (36.0-48.0); HEMOGLOBIN 8.4 g/dL (12.0-16.0); IMMATURE GRANULOCYTES 0.5 %; IMMATURE GRANULOCYTES ABSOLUTE 0.07 10/3/uL (0.0-0.11); LYMPHOCYTES 8.8 %; LYMPHOCYTES ABSOLUTE 1.21 10/3/uL (0.67-4.30); MEAN CORPUS HGB CONC 31.5 g/dL (32.0-36.0); MEAN CORPUSCULAR HEMOGLOB 29.2 pg (26.0-34.0); MEAN CORPUSCULAR VOLUME 92.7 fL (80-100); MEAN PLATELET VOLUME 9.5 fL (9.2-13.0); MONOCYTES 4.2 %; MONOCYTES ABSOLUTE 0.58 10/3/uL (0.21-1.20); NEUTROPHILS 83.1 %; NEUTROPHILS ABSOLUTE 11.36 10/3/uL (2.02-8.40); PLATELET COUNT 271 10/3/uL (150-400); RBC DISTRIBUTION WIDTH 19.2 % (12.0-16.0); RED CELL COUNT 2.88 10/6/uL (4.0-5.6); WHITE BLOOD CELLS 13.7 10/3/uL (4.5-10.5)
[2017-07-24 06:23] LABS: MANUAL DIFF NO %
[2017-07-24 06:25] LABS: INTERNATIONAL NORMAL RATI 1.9 UNITS (-); PROTIME (NOT ORD) 21.8 SEC (12.0-14.5)
[2017-07-24 06:26] LABS: PARTIAL THROMBO TIME 75.5 SEC (22.5-37.2)
[2017-07-24 07:18] LABS: BUN (BLOOD UREA NITROGEN) 17 MG/DL (6-23); CALCIUM, SERUM 7.9 MG/DL (8.5-10.4); CHLORIDE, SERUM 110 MMOL/L (96-112); CO2 (CARBON DIOXIDE) 25 MMOL/L (24-34); CREATININE 1.41 MG/DL (0.55-1.02); FREE T4 1.19 NG/DL (0.76-1.46); GFR AFRICAN AMERICAN 39 ML/MIN (>=60); GFR NON AFRICAN AMERICAN 33 ML/MIN (>=60); GLUCOSE, SERUM 109 MG/DL (60-99); PHOSPHORUS, SERUM 2.4 MG/DL (2.5-4.5); POTASSIUM, SERUM 3.6 MMOL/L (3.5-5.3); SODIUM, SERUM 142 MMOL/L (135-148)
[2017-07-24 09:16] LABS: BE (BASE EXCESS) -3.8 MEQ/L (0 +/- 2.5); CARBOXYHEMOGLOBIN 0.2 % (0-3); HCO3 (ACTUAL BICARBONATE) 20.9 MEQ/L (23-27); HEMOBLOGIN CONTENT 8.5 G/DL (12-16); INSTRUMENT SERIAL # 35151; METHEMOGLOBIN 0.7 % (0-3); O2 CONTENT 11.8 VOL% (18-24); PCO2 (CO2 TENSION) 37 MMHG (35-45); PO2 (O2 TENSION) 109 MMHG (79-93); SAMPLE Arterial; pH 7.38 (7.37-7.43)
[2017-07-24 09:17] LABS: ALLENS TEST Pos
[2017-07-25 04:10] LABS: BASOPHILS 0.1 %; BASOPHILS ABSOLUTE 0.01 10/3/uL (0.0-0.16); EOSINOPHILS 1.2 %; EOSINOPHILS ABSOLUTE 0.15 10/3/uL (0.0-0.53); HEMATOCRIT 25.2 % (36.0-48.0); HEMOGLOBIN 7.9 g/dL (12.0-16.0); IMMATURE GRANULOCYTES 0.6 %; IMMATURE GRANULOCYTES ABSOLUTE 0.07 10/3/uL (0.0-0.11); LYMPHOCYTES ABSOLUTE 1.02 10/3/uL (0.67-4.30); MEAN CORPUS HGB CONC 31.3 g/dL (32.0-36.0); MEAN CORPUSCULAR HEMOGLOB 28.5 pg (26.0-34.0); MEAN PLATELET VOLUME 9.4 fL (9.2-13.0); MONOCYTES 4.5 %; MONOCYTES ABSOLUTE 0.57 10/3/uL (0.21-1.20); NEUTROPHILS 85.6 %; NEUTROPHILS ABSOLUTE 10.88 10/3/uL (2.02-8.40); PLATELET COUNT 208 10/3/uL (150-400); RBC DISTRIBUTION WIDTH 18.7 % (12.0-16.0); RED CELL COUNT 2.77 10/6/uL (4.0-5.6); WHITE BLOOD CELLS 12.7 10/3/uL (4.5-10.5)
[2017-07-25 04:13] LABS: MANUAL DIFF NO %
[2017-07-25 04:19] LABS: INTERNATIONAL NORMAL RATI 2.2 UNITS (-); PARTIAL THROMBO TIME 47.6 SEC (22.5-37.2); PROTIME (NOT ORD) 24.6 SEC (12.0-14.5)
[2017-07-25 04:37] LABS: BUN (BLOOD UREA NITROGEN) 14 MG/DL (6-23); CALCIUM, SERUM 7.2 MG/DL (8.5-10.4); CHLORIDE, SERUM 107 MMOL/L (96-112); CO2 (CARBON DIOXIDE) 23 MMOL/L (24-34); CREATININE 1.15 MG/DL (0.55-1.02); GFR AFRICAN AMERICAN 50 ML/MIN (>=60); GFR NON AFRICAN AMERICAN 43 ML/MIN (>=60); PHOSPHORUS, SERUM 1.7 MG/DL (2.5-4.5); POTASSIUM, SERUM 3.5 MMOL/L (3.5-5.3); SODIUM, SERUM 138 MMOL/L (135-148)
[2017-07-25 04:39] LABS: GLUCOSE, SERUM 220 MG/DL (60-99)
[2017-07-25 04:39] LABS: INSTRUMENT SERIAL # 8083; PCO2 (CO2 TENSION) 32 MMHG (35-45); pH 7.41 (7.37-7.43)
[2017-07-25 04:40] LABS: ALLENS TEST Pos; BE (BASE EXCESS) -4.2 MEQ/L (0 +/- 2.5); CARBOXYHEMOGLOBIN 0.7 % (0-3); DEVICE NC; HCO3 (ACTUAL BICARBONATE) 19.8 MEQ/L (23-27); HEMOBLOGIN CONTENT 8.3 G/DL (12-16); METHEMOGLOBIN 0.5 % (0-3); O2 CONTENT 11.7 VOL% (18-24); OPERATOR ID 14661; PO2 (O2 TENSION) 136 MMHG (79-93); SAMPLE Arterial
[2017-07-25 05:15] LABS: PROCALCITONIN 4.42 ng/mL (<0.5)
[2017-07-25 05:27] LABS: ASCORBIC ACID (UR NOT ORDER) 40 (NEG); BILIRUBIN, URINE NEGATIVE (NEG); KETONE, URINE TRACE MG/DL (NEG); LEUKOCYTE ESTERASE(NOT OR MOD (NEG); WBC (NOT ORDERED) (RFLEX) 3 (0-5)
[2017-07-26 04:38] LABS: BASOPHILS 0.1 %; BASOPHILS ABSOLUTE 0.01 10/3/uL (0.0-0.16); EOSINOPHILS 1.1 %; EOSINOPHILS ABSOLUTE 0.14 10/3/uL (0.0-0.53); IMMATURE GRANULOCYTES 0.6 %; IMMATURE GRANULOCYTES ABSOLUTE 0.08 10/3/uL (0.0-0.11); LYMPHOCYTES 9.5 %; LYMPHOCYTES ABSOLUTE 1.18 10/3/uL (0.67-4.30); MEAN CORPUS HGB CONC 32.8 g/dL (32.0-36.0); MEAN CORPUSCULAR VOLUME 88.6 fL (80-100); MEAN PLATELET VOLUME 9.5 fL (9.2-13.0); MONOCYTES 6.9 %; MONOCYTES ABSOLUTE 0.86 10/3/uL (0.21-1.20); NEUTROPHILS 81.8 %; NEUTROPHILS ABSOLUTE 10.12 10/3/uL (2.02-8.40); PLATELET COUNT 182 10/3/uL (150-400); RBC DISTRIBUTION WIDTH 18.7 % (12.0-16.0); WHITE BLOOD CELLS 12.4 10/3/uL (4.5-10.5)
[2017-07-26 04:52] LABS: HEMATOCRIT 29.6 % (36.0-48.0); HEMOGLOBIN 9.7 g/dL (12.0-16.0); MANUAL DIFF NO %; RED CELL COUNT 3.34 10/6/uL (4.0-5.6)
[2017-07-26 04:59] LABS: BUN (BLOOD UREA NITROGEN) 13 MG/DL (6-23); CALCIUM, SERUM 7.2 MG/DL (8.5-10.4); CHLORIDE, SERUM 108 MMOL/L (96-112); CO2 (CARBON DIOXIDE) 23 MMOL/L (24-34); GFR AFRICAN AMERICAN 52 ML/MIN (>=60); GFR NON AFRICAN AMERICAN 45 ML/MIN (>=60); GLUCOSE, SERUM 107 MG/DL (60-99); PHOSPHORUS, SERUM 1.8 MG/DL (2.5-4.5); POTASSIUM, SERUM 3.7 MMOL/L (3.5-5.3); SODIUM, SERUM 141 MMOL/L (135-148)
[2017-07-26 05:11] LABS: PROCALCITONIN 4.79 ng/mL (<0.5)
[2017-07-26 05:14] LABS: PREALBUMIN 5.3 MG/DL (17.0-43.0)
[2017-07-27 04:40] LABS: BASOPHILS 0.1 %; BASOPHILS ABSOLUTE 0.01 10/3/uL (0.0-0.16); EOSINOPHILS 1.1 %; EOSINOPHILS ABSOLUTE 0.14 10/3/uL (0.0-0.53); HEMOGLOBIN 8.9 g/dL (12.0-16.0); IMMATURE GRANULOCYTES 0.3 %; IMMATURE GRANULOCYTES ABSOLUTE 0.04 10/3/uL (0.0-0.11); LYMPHOCYTES 8.6 %; LYMPHOCYTES ABSOLUTE 1.11 10/3/uL (0.67-4.30); MEAN CORPUS HGB CONC 33.6 g/dL (32.0-36.0); MEAN CORPUSCULAR HEMOGLOB 29.4 pg (26.0-34.0); MEAN CORPUSCULAR VOLUME 87.5 fL (80-100); MEAN PLATELET VOLUME 9.5 fL (9.2-13.0); MONOCYTES 3.9 %; NEUTROPHILS ABSOLUTE 11.07 10/3/uL (2.02-8.40); PLATELET COUNT 183 10/3/uL (150-400); RBC DISTRIBUTION WIDTH 18.1 % (12.0-16.0); RED CELL COUNT 3.03 10/6/uL (4.0-5.6); WHITE BLOOD CELLS 12.9 10/3/uL (4.5-10.5)
[2017-07-27 04:41] LABS: HEMATOCRIT 26.5 % (36.0-48.0); MANUAL DIFF NO %
[2017-07-27 04:51] LABS: BUN (BLOOD UREA NITROGEN) 13 MG/DL (6-23); CALCIUM, SERUM 7.1 MG/DL (8.5-10.4); CHLORIDE, SERUM 109 MMOL/L (96-112); CO2 (CARBON DIOXIDE) 23 MMOL/L (24-34); CREATININE 0.88 MG/DL (0.55-1.02); GFR AFRICAN AMERICAN 68 ML/MIN (>=60); GFR NON AFRICAN AMERICAN 59 ML/MIN (>=60); POTASSIUM, SERUM 4.2 MMOL/L (3.5-5.3); SODIUM, SERUM 140 MMOL/L (135-148)
[2017-07-27 04:52] LABS: GLUCOSE, SERUM 137 MG/DL (60-99)
[2017-07-28 04:28] LABS: BASOPHILS 0.1 %; BASOPHILS ABSOLUTE 0.01 10/3/uL (0.0-0.16); EOSINOPHILS 1.4 %; EOSINOPHILS ABSOLUTE 0.16 10/3/uL (0.0-0.53); HEMATOCRIT 26.9 % (36.0-48.0); HEMOGLOBIN 8.9 g/dL (12.0-16.0); IMMATURE GRANULOCYTES 0.3 %; IMMATURE GRANULOCYTES ABSOLUTE 0.03 10/3/uL (0.0-0.11); LYMPHOCYTES 10.7 %; LYMPHOCYTES ABSOLUTE 1.19 10/3/uL (0.67-4.30); MEAN CORPUS HGB CONC 33.1 g/dL (32.0-36.0); MEAN CORPUSCULAR HEMOGLOB 29.1 pg (26.0-34.0); MEAN CORPUSCULAR VOLUME 87.9 fL (80-100); MEAN PLATELET VOLUME 9.6 fL (9.2-13.0); MONOCYTES 3.2 %; MONOCYTES ABSOLUTE 0.35 10/3/uL (0.21-1.20); NEUTROPHILS 84.3 %; NEUTROPHILS ABSOLUTE 9.37 10/3/uL (2.02-8.40); PLATELET COUNT 170 10/3/uL (150-400); RED CELL COUNT 3.06 10/6/uL (4.0-5.6); WHITE BLOOD CELLS 11.1 10/3/uL (4.5-10.5)
[2017-07-28 04:30] LABS: MANUAL DIFF NO %
[2017-07-28 04:45] LABS: A/G RATIO 0.4 (0.7-1.9); ALBUMIN 1.7 G/DL (3.5-5.0); BUN (BLOOD UREA NITROGEN) 15 MG/DL (6-23); CALCIUM, SERUM 7.8 MG/DL (8.5-10.4); CHLORIDE, SERUM 108 MMOL/L (96-112); CO2 (CARBON DIOXIDE) 24 MMOL/L (24-34); CREATININE 0.89 MG/DL (0.55-1.02); GFR AFRICAN AMERICAN 68 ML/MIN (>=60); GFR NON AFRICAN AMERICAN 58 ML/MIN (>=60); GLOBULIN 4.1 G/DL (2.5-4.1); POTASSIUM, SERUM 3.6 MMOL/L (3.5-5.3); SGOT(AST) 67 U/L (5-40); SGPT(ALT) 20 U/L (5-65); SODIUM, SERUM 138 MMOL/L (135-148); TOTAL BILIRUBIN 0.6 MG/DL (0-1.2); TOTAL PROTEIN 5.8 G/DL (6.0-8.5)
[2017-07-28 04:46] LABS: ALKALINE PHOSPHATASE 116 U/L (45-117); GLUCOSE, SERUM 142 MG/DL (60-99)
[2017-07-28 12:03] LABS: INTERNATIONAL NORMAL RATI 4.6 UNITS (-)
[2017-07-28 12:16] LABS: PROTIME (NOT ORD) 42.9 SEC (12.0-14.5)
[2017-07-29 04:10] LABS: BASOPHILS 0.1 %; BASOPHILS ABSOLUTE 0.01 10/3/uL (0.0-0.16); EOSINOPHILS 0.8 %; EOSINOPHILS ABSOLUTE 0.08 10/3/uL (0.0-0.53); HEMATOCRIT 27.6 % (36.0-48.0); IMMATURE GRANULOCYTES 0.3 %; IMMATURE GRANULOCYTES ABSOLUTE 0.03 10/3/uL (0.0-0.11); LYMPHOCYTES 11.2 %; LYMPHOCYTES ABSOLUTE 1.13 10/3/uL (0.67-4.30); MANUAL DIFF NO %; MEAN CORPUS HGB CONC 32.6 g/dL (32.0-36.0); MEAN CORPUSCULAR HEMOGLOB 28.5 pg (26.0-34.0); MEAN CORPUSCULAR VOLUME 87.3 fL (80-100); MEAN PLATELET VOLUME 10.2 fL (9.2-13.0); MONOCYTES 3.6 %; MONOCYTES ABSOLUTE 0.36 10/3/uL (0.21-1.20); NEUTROPHILS ABSOLUTE 8.45 10/3/uL (2.02-8.40); PLATELET COUNT 171 10/3/uL (150-400); RBC DISTRIBUTION WIDTH 17.8 % (12.0-16.0); RED CELL COUNT 3.16 10/6/uL (4.0-5.6); WHITE BLOOD CELLS 10.1 10/3/uL (4.5-10.5)
[2017-07-29 04:12] LABS: A/G RATIO 0.4 (0.7-1.9); ALBUMIN 1.7 G/DL (3.5-5.0); ALKALINE PHOSPHATASE 144 U/L (45-117); BUN (BLOOD UREA NITROGEN) 17 MG/DL (6-23); CALCIUM, SERUM 7.9 MG/DL (8.5-10.4); CHLORIDE, SERUM 108 MMOL/L (96-112); CO2 (CARBON DIOXIDE) 24 MMOL/L (24-34); CREATININE 0.96 MG/DL (0.55-1.02); GFR AFRICAN AMERICAN 62 ML/MIN (>=60); GFR NON AFRICAN AMERICAN 53 ML/MIN (>=60); GLOBULIN 4.3 G/DL (2.5-4.1); GLUCOSE, SERUM 127 MG/DL (60-99); POTASSIUM, SERUM 3.8 MMOL/L (3.5-5.3); SGOT(AST) 68 U/L (5-40); SGPT(ALT) 24 U/L (5-65); SODIUM, SERUM 139 MMOL/L (135-148); TOTAL BILIRUBIN 0.6 MG/DL (0-1.2)
[2017-07-30 07:14] LABS: INTERNATIONAL NORMAL RATI 3.7 UNITS (-); PROTIME (NOT ORD) 36.3 SEC (12.0-14.5)
[2017-07-30 09:50] LABS: BASOPHILS 0.4 %; BASOPHILS ABSOLUTE 0.04 10/3/uL (0.0-0.16); EOSINOPHILS ABSOLUTE 0.19 10/3/uL (0.0-0.53); HEMATOCRIT 28.4 % (36.0-48.0); IMMATURE GRANULOCYTES 0.4 %; IMMATURE GRANULOCYTES ABSOLUTE 0.04 10/3/uL (0.0-0.11); LYMPHOCYTES 17.1 %; LYMPHOCYTES ABSOLUTE 1.59 10/3/uL (0.67-4.30); MEAN CORPUS HGB CONC 31.7 g/dL (32.0-36.0); MEAN CORPUSCULAR HEMOGLOB 28.5 pg (26.0-34.0); MEAN CORPUSCULAR VOLUME 89.9 fL (80-100); MEAN PLATELET VOLUME 10.9 fL (9.2-13.0); MONOCYTES 6.1 %; MONOCYTES ABSOLUTE 0.57 10/3/uL (0.21-1.20); NEUTROPHILS ABSOLUTE 6.87 10/3/uL (2.02-8.40); PLATELET COUNT 144 10/3/uL (150-400); RBC DISTRIBUTION WIDTH 17.8 % (12.0-16.0); RED CELL COUNT 3.16 10/6/uL (4.0-5.6); WHITE BLOOD CELLS 9.3 10/3/uL (4.5-10.5)
[2017-07-30 09:51] LABS: MANUAL DIFF NO %
[2017-07-30 10:15] LABS: BUN (BLOOD UREA NITROGEN) 19 MG/DL (6-23); CALCIUM, SERUM 7.8 MG/DL (8.5-10.4); CHLORIDE, SERUM 110 MMOL/L (96-112); CO2 (CARBON DIOXIDE) 20 MMOL/L (24-34); CREATININE 1.19 MG/DL (0.55-1.02); GFR AFRICAN AMERICAN 48 ML/MIN (>=60); GFR NON AFRICAN AMERICAN 41 ML/MIN (>=60); GLUCOSE, SERUM 115 MG/DL (60-99); POTASSIUM, SERUM 4.2 MMOL/L (3.5-5.3); SODIUM, SERUM 141 MMOL/L (135-148)
[2017-07-31 04:06] LABS: BASOPHILS 0.1 %; BASOPHILS ABSOLUTE 0.01 10/3/uL (0.0-0.16); EOSINOPHILS 0.6 %; EOSINOPHILS ABSOLUTE 0.05 10/3/uL (0.0-0.53); HEMATOCRIT 24.8 % (36.0-48.0); HEMOGLOBIN 8.2 g/dL (12.0-16.0); IMMATURE GRANULOCYTES 0.6 %; IMMATURE GRANULOCYTES ABSOLUTE 0.05 10/3/uL (0.0-0.11); LYMPHOCYTES 15.4 %; MANUAL DIFF NO %; MEAN CORPUS HGB CONC 33.1 g/dL (32.0-36.0); MEAN CORPUSCULAR HEMOGLOB 29.2 pg (26.0-34.0); MEAN CORPUSCULAR VOLUME 88.3 fL (80-100); MEAN PLATELET VOLUME 10.8 fL (9.2-13.0); MONOCYTES 5.4 %; MONOCYTES ABSOLUTE 0.49 10/3/uL (0.21-1.20); NEUTROPHILS 77.9 %; NEUTROPHILS ABSOLUTE 7.08 10/3/uL (2.02-8.40); PLATELET COUNT 135 10/3/uL (150-400); RBC DISTRIBUTION WIDTH 17.5 % (12.0-16.0); RED CELL COUNT 2.81 10/6/uL (4.0-5.6); WHITE BLOOD CELLS 9.1 10/3/uL (4.5-10.5)
[2017-07-31 04:19] LABS: CHLORIDE, SERUM 109 MMOL/L (96-112); CO2 (CARBON DIOXIDE) 24 MMOL/L (24-34); CREATININE 1.34 MG/DL (0.55-1.02); GFR AFRICAN AMERICAN 41 ML/MIN (>=60); GFR NON AFRICAN AMERICAN 36 ML/MIN (>=60); GLUCOSE, SERUM 106 MG/DL (60-99); POTASSIUM, SERUM 3.7 MMOL/L (3.5-5.3); SGOT(AST) 39 U/L (5-40); SGPT(ALT) 21 U/L (5-65); SODIUM, SERUM 141 MMOL/L (135-148); TOTAL PROTEIN 6.5 G/DL (6.0-8.5)
[2017-07-31 04:20] LABS: A/G RATIO 0.9 (0.7-1.9); ALBUMIN 3.1 G/DL (3.5-5.0); ALKALINE PHOSPHATASE 164 U/L (45-117); BUN (BLOOD UREA NITROGEN) 23 MG/DL (6-23); GLOBULIN 3.4 G/DL (2.5-4.1); TOTAL BILIRUBIN 1.1 MG/DL (0-1.2)
[2017-08-01 06:22] LABS: BASOPHILS 0 %; EOSINOPHILS ABSOLUTE 0.11 10/3/uL (0.0-0.53); HEMATOCRIT 24.8 % (36.0-48.0); HEMOGLOBIN 8.1 g/dL (12.0-16.0); IMMATURE GRANULOCYTES 0.8 %; IMMATURE GRANULOCYTES ABSOLUTE 0.08 10/3/uL (0.0-0.11); LYMPHOCYTES 11.5 %; LYMPHOCYTES ABSOLUTE 1.21 10/3/uL (0.67-4.30); MANUAL DIFF NO %; MEAN CORPUS HGB CONC 32.7 g/dL (32.0-36.0); MEAN CORPUSCULAR HEMOGLOB 28.8 pg (26.0-34.0); MEAN CORPUSCULAR VOLUME 88.3 fL (80-100); MEAN PLATELET VOLUME 11.3 fL (9.2-13.0); MONOCYTES 4.8 %; NEUTROPHILS 81.9 %; NEUTROPHILS ABSOLUTE 8.62 10/3/uL (2.02-8.40); PLATELET COUNT 140 10/3/uL (150-400); RBC DISTRIBUTION WIDTH 17.7 % (12.0-16.0); RED CELL COUNT 2.81 10/6/uL (4.0-5.6); WHITE BLOOD CELLS 10.5 10/3/uL (4.5-10.5)
[2017-08-01 07:09] LABS: BUN (BLOOD UREA NITROGEN) 26 MG/DL (6-23); CALCIUM, SERUM 8.3 MG/DL (8.5-10.4); CHLORIDE, SERUM 107 MMOL/L (96-112); CO2 (CARBON DIOXIDE) 23 MMOL/L (24-34); CREATININE 1.22 MG/DL (0.55-1.02); GFR AFRICAN AMERICAN 46 ML/MIN (>=60); GFR NON AFRICAN AMERICAN 40 ML/MIN (>=60); GLUCOSE, SERUM 112 MG/DL (60-99); POTASSIUM, SERUM 3.4 MMOL/L (3.5-5.3); SODIUM, SERUM 140 MMOL/L (135-148)
[2017-08-01 14:47] LABS: BUN (BLOOD UREA NITROGEN) 26 MG/DL (6-23); CALCIUM, SERUM 8.1 MG/DL (8.5-10.4); CHLORIDE, SERUM 111 MMOL/L (96-112); CO2 (CARBON DIOXIDE) 24 MMOL/L (24-34); CREATININE 1.38 MG/DL (0.55-1.02); GFR AFRICAN AMERICAN 40 ML/MIN (>=60); GFR NON AFRICAN AMERICAN 34 ML/MIN (>=60); GLUCOSE, SERUM 132 MG/DL (60-99); POTASSIUM, SERUM 3.9 MMOL/L (3.5-5.3); SODIUM, SERUM 143 MMOL/L (135-148)
[2017-08-02 05:49] LABS: BUN (BLOOD UREA NITROGEN) 28 MG/DL (6-23); CALCIUM, SERUM 8.1 MG/DL (8.5-10.4); CHLORIDE, SERUM 110 MMOL/L (96-112); CO2 (CARBON DIOXIDE) 22 MMOL/L (24-34); CREATININE 1.44 MG/DL (0.55-1.02); GFR AFRICAN AMERICAN 38 ML/MIN (>=60); GFR NON AFRICAN AMERICAN 33 ML/MIN (>=60); POTASSIUM, SERUM 3.9 MMOL/L (3.5-5.3); SODIUM, SERUM 144 MMOL/L (135-148)
[2017-08-02 05:50] LABS: GLUCOSE, SERUM 103 MG/DL (60-99)
[2017-08-05 11:10] LABS: ACETOHEXAMIDE Negative (()); CHLORPROPAMIDE Negative (()); GLIMEPIRIDE Negative (()); GLIPIZIDE Negative (()); GLYBURIDE Negative (()); NATEGLINIDE Negative (()); REPAGLINIDE Negative (()); TOLAZAMIDE Negative (()); TOLBUTAMIDE Negative (())
== END 2017-08-02 20:22 | disposition expired | DRG 239 ==
LOC: ENRESERVDT → ENRESERVTM → ENRESERV → ER 11:58 → IMCU 16:47 → 7NO 16:47 → IMCU 07-24 13:30
PROVIDERS: Emergency Medicine; Hospitalist; Internal Medicine; Nurse Practitioner Acute Care; Orthopaedic Surgery; Surgery
PROC: 0LBV0ZZ Excision of Right Foot Tendon, Open Approach (ICD-10-PCS; 2017-07-23)
PROC: 0Y6M0ZB Detachment at Right Foot, Partial 2nd Ray, Open Approach (ICD-10-PCS; 2017-07-23)
PROC: 0Y6M0ZC Detachment at Right Foot, Partial 3rd Ray, Open Approach (ICD-10-PCS; 2017-07-23)
PROC: 0Y6M0ZD Detachment at Right Foot, Partial 4th Ray, Open Approach (ICD-10-PCS; 2017-07-23)
PROC: 0Y6M0ZF Detachment at Right Foot, Partial 5th Ray, Open Approach (ICD-10-PCS; 2017-07-23)
PROC: 0Y6M0Z9 Detachment at Right Foot, Partial 1st Ray, Open Approach (ICD-10-PCS; 2017-07-23 10:45)
PROC: 02HV33Z Insertion of Infusion Device into Superior Vena Cava, Percutaneous Approach (ICD-10-PCS; 2017-07-24)
PROC: 4A02X4A Measurement of Cardiac Electrical Activity, Guidance, External Approach (ICD-10-PCS; 2017-07-24)
PROC: 0Y6F0ZZ Detachment at Right Knee Region, Open Approach (ICD-10-PCS; principal; 2017-07-25 07:45)
DX: E11.52 Type 2 diabetes mellitus with diabetic peripheral angiopathy with gangrene (principal); E43 Unspecified severe protein-calorie malnutrition; G93.41 Metabolic encephalopathy; Z66 Do not resuscitate; Z51.5 Encounter for palliative care; N17.9 Acute kidney failure, unspecified; E87.0 Hyperosmolality and hypernatremia; J96.01 Acute respiratory failure with hypoxia; J96.02 Acute respiratory failure with hypercapnia; L02.611 Cutaneous abscess of right foot; F03.90 Unspecified dementia, unspecified severity, without behavioral disturbance, psychotic disturbance, mood disturbance, and anxiety; I48.0 Paroxysmal atrial fibrillation; B95.62 Methicillin resistant Staphylococcus aureus infection as the cause of diseases classified elsewhere; D46.9 Myelodysplastic syndrome, unspecified; I70.261 Atherosclerosis of native arteries of extremities with gangrene, right leg; N39.0 Urinary tract infection, site not specified; E11.22 Type 2 diabetes mellitus with diabetic chronic kidney disease; I82.4Z1 Acute embolism and thrombosis of unspecified deep veins of right distal lower extremity; N18.3 Chronic kidney disease, stage 3 (moderate); I12.9 Hypertensive chronic kidney disease with stage 1 through stage 4 chronic kidney disease, or unspecified chronic kidney disease; E78.5 Hyperlipidemia, unspecified; F44.4 Conversion disorder with motor symptom or deficit; E83.42 Hypomagnesemia; E83.39 Other disorders of phosphorus metabolism; Z86.711 Personal history of pulmonary embolism; R53.81 Other malaise; Z68.22 Body mass index [BMI] 22.0-22.9, adult; Z85.41 Personal history of malignant neoplasm of cervix uteri; Z74.01 Bed confinement status; Z87.440 Personal history of urinary (tract) infections; D63.8 Anemia in other chronic diseases classified elsewhere; E11.649 Type 2 diabetes mellitus with hypoglycemia without coma; R62.7 Adult failure to thrive
CPT/HCPCS: 36415; 36569; 36593; 36600; 70450; 71010; 73630-RT; 80048; 80053; 80202; 81001; 82533; 82805; 82947; 82962; 83036; 83525; 83605; 83735; 84100; 84134; 84145; 84439; 84443; 84681; 85025; 85610; 85730; 86850; 86900; 86901; 86920; 87040; 87070; 87075; 87077; 87086; 87186; 87205; 87641; 88307; 93005; 93926; 96374; 97110-GP; 97163-GP; 97530-GP; 99285; A9270-GY; C1751; G0480; J0692; J1610; J1956; J2185; J2370; J2405; J2710; J2997; J3010; J3370; J3475; P9016; P9045; P9047; P9059